=== PATIENT | female | born 1970 | race Caucasian/White ===

== ENCOUNTER 2021-04-07 08:28 | Outpatient (REF) | payer OTHER, SELFPAY ==
[2021-04-07 08:52] LABS: MANUAL DIFF FLAG NO
[2021-04-07 09:45] LABS: Basophils Percent Auto 0.6 % (0-2); Eosinophils Absolute Auto 0.2 X10*3/uL (0.0-0.4); Eosinophils Percent Auto 2.2 % (0-4); Hematocrit 38.3 % (37-47); Hemoglobin 12.4 g/dl (12.0-16.0); Imm Gran Abs Auto 0.02 X10*3/uL (0.00-0.03); Imm Gran Pct Auto 0.3 % (0.0-0.4); Lymphocytes Absolute Auto 2.3 X10*3/uL (1.2-4.9); Lymphocytes Percent Auto 33.2 % (20-40); Mean Corpuscular HGB Conc 32.4 g/dl (31.0-35.0); Mean Corpuscular Hemoglobin 28.2 pg (27.0-33.0); Monocytes Absolute Auto 0.5 X10*3/uL (0.1-1.2); Monocytes Percent Auto 7.2 % (2-11); Neutrophils Absolute Auto 3.8 X10*3/uL (2.0-8.3); Neutrophils Percent Auto 56.5 % (45-73); Platelet Count 294 X10*3/uL (160-400); White Blood Count 6.8 X10*3/uL (4.8-10.8)
[2021-04-07 10:22] LABS: Alanine Aminotransferase 13 U/L (0-31); Albumin Level 4.1 g/dL (3.5-5.0); Alkaline Phosphatase 44 U/L (39-117); Anion Gap 9 (12-20); Aspartate Amino Transferase 17 U/L (5-31); Bilirubin Total 0.3 mg/dL (0.0-1.0); Blood Urea Nitrogen 8 mg/dL (9-16); Calcium 9.1 mg/dL (8.4-10.2); Carbon Dioxide 28 mmol/L (22-29); Chloride 107 mmol/L (96-108); Cholesterol 209 mg/dL; Estimated Glomerular Filt Rate > 60; Glucose Random 90 mg/dL (60-115); HDL Cholesterol 52 mg/dL; LDL Cholesterol Calculated 141 mg/dl; Potassium 4.2 mmol/L (3.3-5.1); Sodium 140 mmol/L (135-145); Total Protein 6.7 g/dL (6.5-8.0); Triglycerides 83 mg/dL
[2021-04-07 10:26] LABS: Estimated Average Glucose 103 mg/dL; Hemoglobin A1c % 5.2 %
[2021-04-07 10:37] LABS: HBS Num1 > 1000.00 mIU/mL (0-7.99); HBsAGNum1 0.27 S/CO (0.00-0.99); HIV AB/AG Nonreactive (Nonreactive); HIV Num 1 0.05 S/CO (0.00-0.99); Hepatitis B Surface Antigen Negative (Negative); ~HepC Num1 4.85 S/CO (0.00-0.79); ~Hepatitis B Surface Antibody REACTIVE (Nonreactive); ~Hepatitis C Antibody Reactive (Nonreactive)
[2021-04-07 10:39] LABS: Erythrocyte Sedimentation Rate 12 MM/HR (0-20)
[2021-04-07 10:43] LABS: Free T4 (Free Thyroxine) 1.05 ng/dL (0.71-1.85); Thyroid Stimulating Hormone 1.21 uIU/mL (0.32-4.0); Vitamin D 25-OH Total 21.3 ng/mL (>30)
[2021-04-07 10:46] LABS: Syphilis Screen Nonreactive (Nonreactive)
[2021-04-07 10:56] LABS: Folate 15.7 ng/mL (> or = 4.0); Vitamin B12 926 pg/mL (200-900)
[2021-04-07 11:01] LABS: HBc Num1 0.06 S/CO (0.00-0.79); Hepatitis B Core Antibody Nonreactive (Nonreactive)
== END 2021-04-07 08:29 | disposition home or self-care (01) ==
LOC: HO.LAB 08:28
PROVIDERS: PCP Internal Medicine; Visit Provider Internal Medicine
DX: R73.01 Impaired fasting glucose (principal); E78.00 Pure hypercholesterolemia, unspecified; Z20.2 Contact with and (suspected) exposure to infections with a predominantly sexual mode of transmission
CPT/HCPCS: 36415; 80053; 80061; 82306; 82607; 82746; 83036; 84439; 84443; 85025; 85652; 86704; 86706; 86780; 86803; 87340; 87389

== ENCOUNTER → 2021-08-23 13:51 | Outpatient (BNVA) | payer OTHER, SELFPAY | PROVIDERS: PCP Internal Medicine; Referring Provider Internal Medicine; Visit Provider Surgery | DX: S01.311A Laceration without foreign body of right ear, initial encounter (principal); H61.111 Acquired deformity of pinna, right ear | CPT/HCPCS: 99202 ==

== ENCOUNTER 2021-10-03 06:18 | Day surgery (SDC) | payer OTHER, SELFPAY ==
[2021-09-27 13:32] VITALS: BMI 22.4
[2021-09-27 13:37] VITALS: BMI 22.4
--- NOTE | 2021-10-02 08:45 | P.CONAN_ITS ---
Documented by User: Jory Kinsey NP 10/02/21 08:47 HPI - Anesthesia Eval Consult details Narrative: 51yo F for Right Repair of Split Earlobe PMFSH Active Problems Active Problems: All Active Problems (Updated 09/27/21 @ 13:27 by Larisa Moreland RN) Varicose veins of both lower extremities (Acute) Fall (Acute) Ankle pain, right (Acute) Cervical muscle strain (Acute) Acne (Acute) Low back pain (Acute) Wrist pain, right (Acute) Laceration of earlobe (Acute) Annual physical exam (Acute) Colon cancer screening (Acute) Generalized anxiety disorder (Acute) Eczema (Acute) Sexually transmitted disease exposure (Acute) Constipation (Acute) Breast cancer screening by mammogram (Acute) Vitamin D deficiency (Acute) Acquired deformity of pinna, right ear (Acute) Hypercholesterolemia (Acute) Anxiety and depression (Acute) Impaired fasting glucose (Acute) Renal calculus (Acute) Tobacco abuse (Acute) Past Medical History Medical History (Updated 10/03/21 @ 06:26 by Swati Bhakta RN) Acquired deformity of pinna, right ear Anxiety and depression Back pain Hepatitis C virus infection cured after antiviral drug therapy Hypercholesterolemia Impaired fasting glucose Pap smear vag w ASC-US Peripheral vascular disease Renal calculus Tobacco abuse Vitamin D deficiency Family History Family History Father No problems noted. Mother No problems noted. Son No problems noted. Son No problems noted. Daughter No problems noted. Daughter No problems noted. Daughter No problems noted. Maternal Grandmother Breast cancer Surgical History Surgical History H/O tubal ligation History of hemorrhoidectomy Varicose veins of both lower extremities Social History Social History Housing: Apartment Alcohol intake: never Patient Tobacco Use Status: Current everyday Tobacco user Tobacco use type: Cigarette Cigarettes Per Day: 3 e-Cigarette/Vaping Use: Never Used Second Hand Smoke Exposure: No Advance Directives: No Advance Directives Information Provided: Yes Advance Directives on File: No Current occupational status: disabled Meds Allergies Allergy/AdvReac Type Severity Reaction Status Date / Time acetaminophen [Tylenol] AdvReac Mild Abdominal Verified 10/03/21 06:25 Pain Home Medications Medication Instructions Recorded Confirmed Last Taken Type clonidine HCl 0.1 mg tablet 0.1 mg PO BID 03/24/20 09/27/21 Unknown History oxycodone 5 mg tablet 5 mg PO Q6H PRN 03/24/20 09/27/21 10/03/21 04:00 History Exam Exam Date and Time: October 02, 2021 0845 Height,Weight and Vital Signs: Height 5 ft 5 in Weight 61.235 kg Pertinent Lab Results Pertinent Lab Results: Laboratory Tests 04/07/21 04/07/21 04/07/21 08:51 08:51 08:51 WBC 6.8 Hgb 12.4 Hct 38.3 Plt Count 294 Sodium 140 Potassium 4.2 Chloride 107 Carbon Dioxide 28 BUN 8 L Creatinine 0.78 Hemoglobin A1c % 5.2 Calcium 9.1 Total Bilirubin 0.3 AST 17 ALT 13 Alkaline Phosphatase 44 Total Protein 6.7 Albumin 4.1 Assessment and Plan Assessment Anesthesia Assessment: Chart Reviewed Documented by User: Guido Flor MD 10/03/21 07:08 [facility] Past Medical History Medical History (Updated 10/03/21 @ 06:26 by Swati Bhakta, RN) Acquired deformity of pinna, right ear Anxiety and depression Back pain Hepatitis C virus infection cured after antiviral drug therapy Hypercholesterolemia Impaired fasting glucose Pap smear vag w ASC-US Peripheral vascular disease Renal calculus Tobacco abuse Vitamin D deficiency Family History Family History Father No problems noted. Mother No problems noted. Son No problems noted. Son No problems noted. Daughter No problems noted. Daughter No problems noted. Daughter No problems noted. Maternal Grandmother Breast cancer Family history of problems with anesthesia: No Surgical History Surgical History H/O tubal ligation History of hemorrhoidectomy Varicose veins of both lower extremities History of Problems with Anesthesia: No Social History Social History Housing: Apartment Alcohol intake: never Patient Tobacco Use Status: Current everyday Tobacco user Tobacco use type: Cigarette Cigarettes Per Day: 3 e-Cigarette/Vaping Use: Never Used Second Hand Smoke Exposure: No Advance Directives: No Advance Directives Information Provided: Yes Advance Directives on File: No Current occupational status: disabled Meds Allergies Allergy/AdvReac Type Severity Reaction Status Date / Time acetaminophen [Tylenol] AdvReac Mild Abdominal Verified 10/03/21 06:25 Pain Home Medications Medication Instructions Recorded Confirmed Last Taken Type clonidine HCl 0.1 mg tablet 0.1 mg PO BID 03/24/20 09/27/21 Unknown History oxycodone 5 mg tablet 5 mg PO Q6H PRN 03/24/20 09/27/21 10/03/21 04:00 History Exam Airway Mallampati Class: II TM Dist: >3cm Neck ROM: Full Loose/Missing/Broken Teeth: No Heart: rrr+[id number] Lungs: cta b/l Assessment and Plan Assessment Anesthesia Assessment: Anesthesia Plan Discussed Final Anesthetic Review Family History of Problems with Anesthesia: No History of Problems with Anesthesia: No NPO: Yes ASA Class: II Final Preanesthetic Review: No Changes in Pt Med Stat, Meds/Allgs Chart Reviewed, Consent Obtained/Reviewed and Anes Risks/Benef Reviewed Patient Risk: Low Procedure Risk: Low Assessment/Block/Sedation in SS: Assess/Block/Sedation-SS Anesthetic Plan Anesthetic Plan: MAC: and Agree w/ Assess. and Plan Disposition: Standard PACU
[2021-10-03 06:30] VITALS: BP 122/65; PULSE 69; RESP 16; TEMP 36.4; O2SAT 99
[2021-10-03] MEDS: Lactated Ringers 1,000 ML 100 ML IVCONT (06:47)
--- NOTE | 2021-10-03 07:25 | P.HPSUR_ITS ---
Pre-Procedural Eval Section A Date of Service: 10/03/21 Section B Chief Complaint: Acquired deformity of pinna, right ear Details of Present Illness: has split earlobe on right Relevant Social History: None Present Medications: see Short Stay Collaborative assessment Medical History: Significant History (chronic back pain, anxiety, varicose veins) History of Previous Operations: No relevant previous surgery Allergies: Allergies Allergy/AdvReac Type Severity Reaction Status Date / Time acetaminophen [Tylenol] AdvReac Mild Abdominal Verified 10/03/21 06:25 Pain Review of Systems Sugical H&P ROS: Negative: Constitution, Cardiovascular, Respiratory, N eurological, Psychiatric, Hem-Onc, Allergic/Immunologic, Gastrointestinal, Genitourinary, Musculoskeletal, Integumentary, Endocrine and Eyes/Ears/Nose/Throat Exam Surgical H&P Exam: Normal: HEENT, Normal: Heart, Normal: Lungs, Normal: Extremities, Normal: Abdomen, Normal: Skin and Normal: Neurological Exam Comment: split earlobe right Plan Diagnosis/Plan: Unchanged I have reviewed the history and physical and performed a pertinent physical examination on my patient. No changes have occurred unless specified.
--- NOTE | 2021-10-03 08:14 | P.OP_ITS ---
Operative Note Operative Note Date of Service: 10/03/21 Narrative: Preop diagnosis: Split earlobe, right Postop diagnosis: The same Procedure: Repair of split earlobe, right under monitored anesthesia care Surgeon: Michael Quintanilla MD Patient is a 51-year-old female with a 1 cm split earlobe on the right side. She wanted to proceed with repair. The technique the procedure. She was aware of the risks, benefits, and alternatives. She had wanted this done under monitored anesthesia care in view of her anxiety . He was brought to the operating room she was placed under monitored anesthesia care. Her head was turned to the left to expose the right earlobe. This area was prepped and draped. A surgical time-out was done. The patient received cefazolin 2 g IV preoperatively. Lidocaine 1 % was used for local anesthesia. I excise the split in the earlobe in AV- shaped fashion. I then reappose the skin starting from anteriorly all the way to the posterior side of the excised part of this earlobe using nylon 5 0 simple interrupted sutures. The area remained viable and nonischemic throughout. hemostasis was confirmed, proceeded to then infiltrated the area surrounding this Marcaine 0.5% for postop analgesia. I applied thick dressings and secured this with tape. The procedure was then completed. The patient tolerated the procedure well. There were no complications noted. Initial and final counts of sponges and instruments were correct. Estimated blo od loss about 2 cc The patient was then transferred to the recovery room with stable vital signs.
[2021-10-03 08:19] VITALS: BP 96/63; PULSE 75; RESP 18; TEMP 36.1; O2SAT 100
[2021-10-03 08:35] VITALS: BP 111/69; PULSE 64; RESP 18; TEMP 36.2; O2SAT 100
== END 2021-10-03 11:27 | disposition home or self-care (01) ==
PROVIDERS: PCP Internal Medicine; Visit Provider Surgery
PROC: (CPT 12011; principal; 2021-10-03 07:30)
DX: H61.111 Acquired deformity of pinna, right ear (principal); S01.311A Laceration without foreign body of right ear, initial encounter; W26.8XXA Contact with other sharp object(s), not elsewhere classified, initial encounter; Y93.89 Activity, other specified; Y92.89 Other specified places as the place of occurrence of the external cause; Y99.8 Other external cause status; F41.1 Generalized anxiety disorder; I73.9 Peripheral vascular disease, unspecified; R73.01 Impaired fasting glucose; E78.00 Pure hypercholesterolemia, unspecified; Z79.899 Other long term (current) drug therapy; Z88.8 Allergy status to other drugs, medicaments and biological substances; Z86.19 Personal history of other infectious and parasitic diseases; F17.210 Nicotine dependence, cigarettes, uncomplicated
CPT/HCPCS: 12011; J0690; J1885; J2250; J2405; J3010

== ENCOUNTER → 2021-10-23 15:28 | Outpatient (BNVA) | payer OTHER, SELFPAY | PROVIDERS: PCP Internal Medicine; Referring Provider Internal Medicine; Visit Provider Surgery | DX: S01.312D Laceration without foreign body of left ear, subsequent encounter (principal) | CPT/HCPCS: 99212 ==

== ENCOUNTER 2021-11-10 15:06 | Outpatient (REF) | payer OTHER, SELFPAY ==
--- NOTE | ~2021-11-10 | MM_ITS ---
EXAMINATION: MM SCREENING DIGITAL BREAST TOMOSYNTHESIS, BILATERAL CLINICAL INFORMATION: Screening. Asymptomatic. The lifetime risk of breast cancer based on the Tyrer-Cuzick Model is 11%. COMPARISON: Mammography: 11/04/2015, 04/28/2014 TECHNIQUE: Digital breast tomosynthesis is performed in both the craniocaudal and mediolateral oblique views along with computer-aided detection (CAD). Synthesized 2D images are generated from the tomosynthesis. Additional left CC view is provided. FINDINGS: The breasts are heterogeneously dense, which may obscure small masses (ACR BI-RADS breast composition Category c). Inhomogeneous fibronodular parenchymal pattern is similar to prior studies. There is no significant mass or interval architectural abnormality or developing density. Scattered punctate round calcifications are present. No suspicious calcifications. The axilla and skin contours are unremarkable. No significant changes. MM/MM tomosynthesis screening BI IMPRESSION: No significant changes from prior studies. ASSESSMENT: BI-RADS 2: Benign RECOMMENDATION: Routine annual mammography screening. This patient's information was entered into a reminder system with a target due date for their next mammogram.
== END 2021-11-10 15:07 | disposition home or self-care (01) ==
LOC: HO.MAMMO 15:06
PROVIDERS: PCP Internal Medicine; Visit Provider Internal Medicine
DX: Z12.31 Encounter for screening mammogram for malignant neoplasm of breast (principal)
CPT/HCPCS: 77063; 77067

== ENCOUNTER 2022-06-11 11:55 | Outpatient (REF) | payer OTHER, SELFPAY ==
[2022-06-11 12:15] LABS: MANUAL DIFF FLAG NO
[2022-06-11 12:28] LABS: Basophils Percent Auto 0.3 % (0-2); Eosinophils Absolute Auto 0.1 X10*3/uL (0.0-0.4); Eosinophils Percent Auto 0.8 % (0-4); Hematocrit 39.3 % (37.0-47.0); Hemoglobin 12.8 g/dl (12.0-16.0); Imm Gran Abs Auto 0.04 X10*3/uL (0.00-0.03); Imm Gran Pct Auto 0.3 % (0.0-0.4); Lymphocytes Absolute Auto 2.1 X10*3/uL (1.2-4.9); Lymphocytes Percent Auto 17.4 % (20-40); Mean Corpuscular HGB Conc 32.6 g/dl (31.0-35.0); Mean Corpuscular Hemoglobin 28.4 pg (27.0-33.0); Mean Corpuscular Volume 87.1 fL (80.0-98.0); Mean Platelet Volume 8.9 fL (9.4-12.3); Monocytes Absolute Auto 0.7 X10*3/uL (0.1-1.2); Monocytes Percent Auto 5.6 % (2-11); Neutrophils Absolute Auto 9.1 x10*3/uL (2.0-8.3); Neutrophils Percent Auto 75.6 % (45-73); Platelet Count 276 X10*3/uL (160-400); Red Blood Count 4.51 X10*6/uL (4.20-5.50); Red Cell Distribution Width 13.7 % (11.0-16.0)
[2022-06-11 13:05] LABS: Estimated Average Glucose 100 mg/dL; Hemoglobin A1c % 5.1 %
[2022-06-11 13:13] LABS: Alanine Aminotransferase 10 U/L (0-31); Albumin Level 4.1 g/dL (3.5-5.0); Alkaline Phosphatase 51 U/L (39-117); Anion Gap 10 (12-20); Aspartate Amino Transferase 15 U/L (5-31); Bilirubin Total 0.5 mg/dL (0.0-1.0); Blood Urea Nitrogen 6 mg/dL (9-16); Calcium 9.3 mg/dL (8.4-10.2); Carbon Dioxide 27 mmol/L (22-29); Chloride 106 mmol/L (96-108); Cholesterol 204 mg/dL; Estimated Glomerular Filt Rate > 60; Free T4 (Free Thyroxine) 0.96 ng/dL (0.71-1.85); Glucose Random 117 mg/dL (60-115); HDL Cholesterol 56 mg/dL; LDL Cholesterol Calculated 137 mg/dl; Potassium 4.3 mmol/L (3.3-5.1); Sodium 139 mmol/L (135-145); Thyroid Stimulating Hormone 0.37 uIU/mL (0.32-4.0); Total Protein 6.5 g/dL (6.5-8.0); Triglycerides 56 mg/dL; Vitamin D 25-OH Total 14.3 ng/mL (>30)
[2022-06-11 14:11] LABS: Folate 16.1 ng/mL (> or = 4.0); Vitamin B12 867 pg/mL (200-900)
== END 2022-06-11 11:56 | disposition home or self-care (01) ==
LOC: HO.LAB 11:55
PROVIDERS: PCP Internal Medicine; Visit Provider Internal Medicine
DX: E78.00 Pure hypercholesterolemia, unspecified (principal); R73.01 Impaired fasting glucose; M54.50 Low back pain, unspecified
CPT/HCPCS: 36415; 72100; 80053; 80061; 82306; 82607; 82746; 83036; 84439; 84443; 85025

== ENCOUNTER 2022-07-20 12:46 | Outpatient (RCR) | payer OTHER, SELFPAY ==
--- NOTE | 2022-07-20 14:48 | MHC.PT.EP ---
[facility] [place] Office [place] Office [place] Office [address] Rex Durant [address] [phone] F: [phone] F: [phone] F: [phone] F: [phone] Physical Therapy Plan of Care Date of Evaluation: Date of Surgery: Diagnosis: low back pain Assessment: Patient is a 52 y.o. female who is referred to PT by Dr. Bhavya Mariscal MD with Dx of low back pain. 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 Patient impairments include pain, radicular sxs, weakness in hips and core, limited ROM, antalgic gait. Patient current functional limitations are prolonged walking, prolonged standing, prolonged sitting, put on shoes/socks, difficulty sleeping (lies on side). Patient will benefit from skilled PT to address aforementioned impairments and functional limitations to meet established goals. Frequency and Duration: The patient will be seen 2x/week for 4 weeks Short Term Goals: 2 weeks Patient demonstrates consistency and independence with HEP to self manage symptoms. Patient presents with increased L hip glute med strength 4/5 to be able to ambulate without antalgia. Alf Goals: Patient presents with increased L hip flexion 4+/5 to be able to stand to cook for more than 10 mins. Patient presents with increased low back AROM flexion 70 degrees to be able to put on shoes/socks. Treatment Plan: Modalities to reduce pain, spasms and effusion. Manual therapy to restore motion and function. Therapeutic exercise to improve strength and flexibility. Neuromuscular re-education for posture and balance. Therapeutic activities to return to functional activities of daily living. Electronically signed by: Anju Allen, PT, DPT Please sign and return to therapist. Thank you for your referral.
--- NOTE | 2022-08-20 12:52 | MHC.PT.DC ---
[facility] [place] Office [place] Office [place] Office [address] Rex Durant [address] [phone] F: [phone] F: [phone] F: [phone] F: [phone] Physical Therapy Discharge Report Diagnosis: low back pain Date of Surgery: Date of Evaluation: 07/20/22 Date of Discharge: Treatments to Date: 1 Cancellations to Date: 1 No Shows to Date: 3 Discharge Status: Visit Non-compliance Discharge Summary: Patient did not show to any visits after initial evaluation. Therefore she is discharged from PT at this time. Electronically signed by: Anju Allen, PT, DPT Please sign and return to therapist. Thank you for your referral.
== END 2022-08-20 12:52 | disposition home or self-care (01) ==
LOC: HO.PT 12:46
PROVIDERS: PCP Internal Medicine; Visit Provider Internal Medicine
DX: M54.50 Low back pain, unspecified (principal)
CPT/HCPCS: 97110; 97140; 97161

== ENCOUNTER 2023-02-05 14:27 | Outpatient (AMB) | payer OTHER, SELFPAY ==
[2023-02-05 14:39] VITALS: BP 112/70; PULSE 72; O2SAT 96
--- NOTE | 2023-02-05 14:39 | A.OFFPC_ITS ---
Vital Signs 02/05/23 14:39 Height 5 ft 5 in Weight 120 lb BMI 20.0 BP 112/70 Blood Pressure Location Lt brachial Position Sitting Pulse 72 Pulse Source Pulse Oximeter Pulse Oximetry (%) 96 Oxygen Delivery Method Room Air Intake Visit Reasons: discuss referral/order for legs Allergies acetaminophen [Tylenol] Adverse Reaction (Mild, Verified 02/05/23 14:39) Abdominal Pain Medication List - Last Reconciled 02/05/23 by Bhavya Mariscal MD hydrocortisone 2.5% (Proctosol HC) 1 appl UT BID-QID PRN oxycodone 10 mg PO Q6H PRN sennosides-docusate sodium 8.6-50 mg (Senna-S) 2 tab-caps (2 x 8.6-50 mg) PO BEDTIME 30 days Tobacco use date assessed: 02/05/23 Dental Screening Dental Screen Date: 02/05/23 Did you have a dental visit in the last 12 months?: Yes Did you have a dental problem in the last 6 months where you did not have access to dental care?: No Was dental information given to patient?: Patient has dentist HPI discuss referral/order for legs HPI Details 52-year-old female smoker with a history of recurrent kidney stones, generalized anxiety disorder hypercholesterolemia impaired glucose tolerance last seen in April 2022. Patient has complained about leg pain for the ken gest time and blames varicose veins as the cause.. Review of the notes patient has followed up with vascular surgeon has had endovenous radiofrequency ablation of the saphenous vein before and chronic lower leg pain of unclear etiology requiring narcotics. Patient has been on long on narcotics under the vascular surgeon for the leg pain and has reached out to me regarding pain that does not get explained by the circulation problem as this has been mild. Advised pain management versus diagnosis fibromyalgia.PAtient has seen Dr. Gant and states that she is not her regular doctor (Dr. Zhang.) who has made plans already which is acupuncture and continuing with the pain medication. . PAtient does not want to see pain management and wants to go ahead with acupuncture . [facility] Medical History (Updated 02/05/23 @ 15:03 by Bhavya Mariscal MD) Acquired deformity of pinna, right ear Anxiety and depression Back pain Hepatitis C virus infection cured after antiviral drug therapy Hypercholesterolemia Impaired fasting glucose Pap smear vag w ASC-US Peripheral vascular disease Renal calculus Tobacco abuse Vitamin D deficiency Surgical History H/O tubal ligation History of hemorrhoidectomy Varicose veins of both lower extremities Family History (Updated 02/05/23 @ 14:40 by Dahlia Donnelly [facility]) Father No problems noted. Mother No problems noted. Son No problems noted. Son No problems noted. Daughter No problems noted. Daughter No problems noted. Daughter No problems noted. Maternal Grandmother Breast cancer Social History Housing: Apartment Alcohol intake: never Patient Tobacco Use Status: Current everyday Tobacco user Tobacco use type: Cigarette Cigarettes Per Day: 3 e-Cigarette/Vaping Use: Never Used Second Hand Smoke Exposure: No Current occupational status: disabled Cognitive needs: No Hearing needs: No Vision needs: No Questionnaire PHQ-9 Over the last 2 weeks, how often have you been bothered by any of the following problems? 1. Little interest or pleasure in doing things: several days 2. Feeling down, depressed, or hopeless: several days 3. Trouble falling or staying asleep, or sleeping too much: not at all 4. Feeling tired or having little energy: not at all 5. Poor appetite or overeating: not at all 6. Feeling bad about yourself - or that you are a failure or have let yourself or your family down: not at all 7. Trouble concentrating on things, such as reading the newspaper or watching television: not at all 8. Moving or speaking so slowly that other people could have noticed. Or the opposite - being so fidgety or restless that you have been moving around a lot more than usual: not at all 9. Thoughts that you would be better off or of hurting yourself in some way: not at all Total score: 2 Depression Screening Interpretation: Positive Source: Developed by Drs. Isiah Stanley, Kari Sprague, Troy Kendrick and colleagues, with an educational maxime from [employer] [place]. Thrive Questionnaire Date Thrive assessed: 02/05/23 I am a: Patient What is your living situation today?: I have a steady place to live Within the past 12 months, did the food you bought not last and you didn't have the money to get more?: Never true Within the past 12 months, did you worry whether your food would run out before you got money to buy more?: Never true Do you have trouble paying for medicines?: No Do you have trouble getting transportation to medical appointments?: No Do you have trouble paying your heating and electricity bill?: No Do you have trouble taking care of your child, family member or friend?: No Do you have trouble with day-to-day activities such as bathing, preparing meals, shopping, managing finances, etc.?: No Are you currently unemployed and looking for a job?: No Are you interested in more education?: No Currently or been in a relationship where the following occur: no concerns reported AUDIT C Alcohol Use Questionnaire (AUDIT-C) 1. How often do you have a drink containing alcohol?: Never 2. How many drinks containing alcohol do you have on a typical day when you are drinking?: 1 or 2 3. How often do you have six or more drinks on one occasion?: Never Total Score: 0 THERESA-7 AMB Questionnaire THERESA-7 Date THERESA - 7 assessed: 02/05/23 Feeling nervous, anxious, or on edge: 0 = Not at all Not being able to stop or control worryin = Not at all Worrying too much about different things: 0 = Not at all Trouble relaxin = Not at all Being so restless that it is hard to sit still: 0 = Not at all Becoming easily annoyed or irritable: 0 = Not at all Feeling afraid as if something awful might happen: 0 = Not at all Total THERESA-7 score (0-4 normal; 5-9 mild; 10-14 moderate; 15-21 severe): 0 Source: Developed by Drs. Isiah Stanley, Kari Sprague, Troy Kendrick and colleagues, with an educational maxime from [employer] [place]. Physical exam (Primary Care) Vital Signs: Last Vital Signs Pulse 72 02/05/23 14:39 BP 112/70 02/05/23 14:39 Pulse Ox 96 02/05/23 14:39 Oxygen Delivery Method Room Air 02/05/23 14:39 BMI result Body Mass Index 20.0 Tobacco/Smoking Status: Tobacco use Status Tobacco use date assessed 02/05/23 02/05/23 14:45 Patient Tobacco Use Status Current everyday Tobacco 02/05/23 14:45 Tobacco use type Cigarette 02/05/23 14:45 e-Cigarette/Vaping Use Never Used 02/05/23 14:45 PHQ-9: PHQ-9 Score PHQ-9: Total score 2 02/05/23 14:45 Depression Screening Interpretation: Positive Thrive Assessment: Date of Thrive Assessment Date Thrive assessed 02/05/23 02/05/23 14:45 Currently or been in a relationship where the following occur: no concerns reported Const General: alert; No acute distress Eyes Conjunctivae: conjunctivae normal Resp Auscultation: clear to auscultation bilaterally Cardio Rate: regular rate Rhythm: regular rhythm GI Inspection: Yes normal to inspection Extrem General: Yes normal to inspection and No edema Assessment and Plan Assessment & Plan (1) Chronic leg pain: Code(s): M79.606 - Pain in leg, unspecified; G89.29 - Other chronic pain Plan: Vascular surgeon has reached out to me regarding the leg pain out of proportion from the medical problem. Consideration on pain management versus a diagnosis of fibromyalgia but patient would rather have a trial of acupuncture. Referral done (2) Impaired fasting glucose: Code(s): R73.01 - Impaired fasting glucose Plan: Decrease the amount of carbohydrate intake, pasta, bread, rice and potatoes are all sugar and that is aside from all the sweet stuff, remember that fruits are good but they are Sweet also. (3) Tobacco abuse: Comment: States stopped March 2021 Code(s): Z72.0 - Tobacco use Plan: Patient has been strongly advised to stop smoking! (4) Hypercholesterolemia: Code(s): E78.00 - Pure hypercholesterolemia, unspecified Plan: Avoid fried foods, chicken skin, eggs, butter margarine, pastries and meat. Be it pork or beef they have a lot of cholesterol LDL goal of less than 130 and triglyceride of less than 150 (5) Peripheral vascular disease: Comment: had vein ligation 2015 Code(s): I73.9 - Peripheral vascular disease, unspecified Plan: When sitting down elevate the legs, exercise, and support stockings Orders: Referrals Acupuncture Referral G89.29 - Other chronic pain, I73.9 - Peripheral vascular disease, unspecified, M79.606 - Pain in leg, unspecified Medications: Refilled sennosides-docusate sodium 8.6-50 mg (Senna-S) 2 tab-caps (2 x 8.6-50 mg) PO BEDTIME 30 days 60 tabs 1RF K59.00 - Constipation, unspecified hydrocortisone 2.5% (Proctosol HC) 1 appl UT BID-QID PRN 30 grams 0RF hemorrhoids K64.9 - Unspecified hemorrhoids Coding Level of Care Code Est Pt Level 4 (88097) Diagnoses Chronic leg pain M79.606; G89.29 Impaired fasting glucose R73.01 Tobacco abuse Z72.0 Hypercholesterolemia E78.00 Peripheral vascular disease I73.9
== END 2023-02-05 15:14 | disposition home or self-care (01) ==
PROVIDERS: PCP Internal Medicine; Visit Provider Internal Medicine
DX: G89.29 Other chronic pain (principal); M79.606 Pain in leg, unspecified; I73.9 Peripheral vascular disease, unspecified; R73.01 Impaired fasting glucose; Z72.0 Tobacco use; E78.00 Pure hypercholesterolemia, unspecified
CPT/HCPCS: 99214

== ENCOUNTER 2023-04-09 13:52 | Outpatient (REF) | payer OTHER, SELFPAY | END 2023-04-09 13:53 | disposition home or self-care (01) | LOC: HO.MAMMO 13:52 | PROVIDERS: PCP Internal Medicine; Visit Provider Internal Medicine | DX: Z12.31 Encounter for screening mammogram for malignant neoplasm of breast (principal) | CPT/HCPCS: 77063; 77067 ==

== ENCOUNTER → 2023-04-09 14:00 | Outpatient (BNV) | payer OTHER, SELFPAY | PROVIDERS: PCP Internal Medicine; Visit Provider Radiology Diagnostic Radiology | DX: Z12.31 Encounter for screening mammogram for malignant neoplasm of breast (principal) | CPT/HCPCS: 77063; 77067 ==

== ENCOUNTER 2023-05-08 13:00 | Outpatient (AMB) | payer OTHER, SELFPAY ==
[2023-05-08 13:03] VITALS: BP 102/52; PULSE 67; O2SAT 98; BMI 21.0
--- NOTE | 2023-05-08 13:03 | MHC.PC.OV ---
Vital Signs 05/08/23 13:03 Height 5 ft 5 in Weight 126 lb BMI 21.0 BP 102/52 L Blood Pressure Location Lt brachial Position Sitting Pulse 67 Pulse Source Pulse Oximeter Pulse Oximetry (%) 98 Oxygen Delivery Method Room Air Intake Visit Reasons: Annual Exam Allergies ibuprofen [From Motrin] Adverse Reaction (Intermediate, Verified 05/08/23 13:21) Stomach Upset acetaminophen [Tylenol] Adverse Reaction (Mild, Verified 05/08/23 13:03) Abdominal Pain Medication List - Last Reconciled 05/08/23 by Bhavya Mariscal MD oxycodone 10 mg PO DAILY PRN sennosides-docusate sodium 8.6-50 mg (Senna-S) 2 tab-caps (2 x 8.6-50 mg) PO BEDTIME 30 days Tobacco use date assessed: 02/05/23 Dental Screening Dental Screen Date: 05/08/23 Did you have a dental visit in the last 12 months?: Yes Did you have a dental problem in the last 6 months where you did not have access to dental care?: No Was dental information given to patient?: Patient has dentist HPI Annual Exam HPI Details 53-year-old female smoker with a history of impaired glucose tolerance, hypercholesterolemia peripheral vascular disease and chronic leg pain last seen in January 2023. Patient is here for physical exam. Mammogram is up-to-date December 2021 Cologuard negative patient had chronic leg pain and vascular surgeon has sent out a message for pain management but patient has decided acupuncture. 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 not able to do acupuncture and looking for due to [facility] Medical History (Updated 05/08/23 @ 13:41 by Bhavya Mariscal MD) Back pain Acquired deformity of pinna, right ear Hypercholesterolemia Peripheral vascular disease Anxiety and depression Pap smear vag w ASC-US Vitamin D deficiency Hepatitis C virus infection cured after antiviral drug therapy Impaired fasting glucose Renal calculus Tobacco abuse Surgical History Varicose veins of both lower extremities H/O tubal ligation History of hemorrhoidectomy Family History (Updated 02/05/23 @ 14:40 by Dahlia Donnelly CMA) Father No problems noted. Mother No problems noted. Son No problems noted. Son No problems noted. Daughter No problems noted. Daughter No problems noted. Daughter No problems noted. Maternal Grandmother Breast cancer Social History (Updated 05/08/23 @ 13:24 by Bhavya Mariscal MD) Housing: Apartment Alcohol intake: never Patient Tobacco Use Status: Current everyday Tobacco user Tobacco use type: Cigarette Cigarettes Per Day: 3 Years Smoked: stopped 02/2023 e-Cigarette/Vaping Use: Never Used Second Hand Smoke Exposure: No Current occupational status: disabled Cognitive needs: No Hearing needs: No Vision needs: No Questionnaire PHQ-9 Over the last 2 weeks, how often have you been bothered by any of the following problems? 1. Little interest or pleasure in doing things: several days 2. Feeling down, depressed, or hopeless: several days 3. Trouble falling or staying asleep, or sleeping too much: not at all 4. Feeling tired or having little energy: not at all 5. Poor appetite or overeating: not at all 6. Feeling bad about yourself - or that you are a failure or have let yourself or your family down: not at all 7. Trouble concentrating on things, such as reading the newspaper or watching television: not at all 8. Moving or speaking so slowly that other people could have noticed. Or the opposite - being so fidgety or restless that you have been moving around a lot more than usual: not at all 9. Thoughts that you would be better off or of hurting yourself in some way: not at all Total score: 2 Depression Screening Interpretation: Positive Depression Screening Done: Yes Source: Developed by Drs. Isiah Stanley, Kari Sprague, Troy Kendrick and colleagues, with an educational maxime from [employer] Thrive Questionnaire Date Thrive assessed: 02/05/23 AUDIT C Alcohol Use Questionnaire (AUDIT-C) 1. How often do you have a drink containing alcohol?: Never 2. How many drinks containing alcohol do you have on a typical day when you are drinking?: 1 or 2 3. How often do you have six or more drinks on one occasion?: Never Total Score: 0 THERESA-7 AMB Questionnaire THERESA-7 Date THERESA - 7 assessed: 08/15/23 Source: Developed by Drs. Isiah Stanley, Kari Sprague, Troy Kendrick and colleagues, with an educational maxime from [employer]. Review of Systems Const Denies poor appetite and Denies weakness Eyes Denies no additional complaints ENT Reports Normal hearing present, Denies dizziness, Denies nasal congestion, Denies tinnitus and Denies sore throat Card Denies chest pain, Denies syncope, Denies rapid heart rate and Denies dyspnea Resp Denies cough and Denies dyspnea GI Denies change in stool character, Reports constipation, Denies diarrhea, Denies nausea and Denies vomiting Denies urinary frequency, Denies difficulty voiding and Denies dysuria Neuro Reports Normal hearing present, Denies confusion, Denies dizziness, Denies syncope and Denies weakness Psych Denies confusion Physical exam (Primary Care) Vital Signs: Last Vital Signs Pulse 67 05/08/23 13:03 BP 102/52 L 05/08/23 13:03 Pulse Ox 98 05/08/23 13:03 Oxygen Delivery Method Room Air 05/08/23 13:03 BMI result Body Mass Index 21.0 Tobacco/Smoking Status: Tobacco use Status Tobacco use date assessed 02/05/23 05/08/23 13:07 Patient Tobacco Use Status Current everyday Tobacco 05/08/23 13:07 Tobacco use type Cigarette 05/08/23 13:07 e-Cigarette/Vaping Use Never Used 05/08/23 13:07 PHQ-9: PHQ-9 Score PHQ-9: Total score 2 05/08/23 13:07 Depression Screening Interpretation: Positive Thrive Assessment: Date of Thrive Assessment Date Thrive assessed 02/05/23 05/08/23 13:07 Const General: No confusion Orientation/consciousness: No confusion HENMT Head: Yes normocephalic Ears: external ears normal and TM's normal bilaterally Face and sinus: Yes normal facial exam Mouth: moist mucous membranes Throat: Yes tonsils normal Eyes Conjunctivae: conjunctivae normal Pupils: Equal, round and reactive pupils present and Pupil accommodation reflex normal Direct Ophthalmoscopy: normal light reflex Neck Neck: No lymphadenopathy Thyroid: Thyroid normal Chest Chest palpation & inspection: normal inspection of the chest Resp Effort & Inspection: normal respiratory effort and no audible wheezes Auscultation: clear to auscultation bilaterally, no crackles, no wheezes and lung sounds not diminished Cardio Rate: regular rate Rhythm: regular rhythm Peripheral pulses: radial pulses present and dorsalis pedis present GI Palpation (GI): no masses Auscultation: normal bowel sounds and normoactive bowel sounds Rectal Exam - Female: deferred Skin General skin exam: no rashes or lesions noted Rashes: no rashes Neuro General: No confusion Cranial nerves: Yes Equal, round and reactive pupils present and Yes Normal hearing present Cognition (Neuro): normal cognition Gait exam (Neuro): Normal gait present Motor exam (neuro): 5/5 motor strength present throughout Deep tendon reflexes (DTR's): Right brachioradialis reflex intensity grade: 2+, Left brachioradialis reflex intensity grade: 2+, Right patellar reflex intensity grade: 2+ and Left patellar reflex intensity grade: 2+ Extrem General: No edema Assessment and Plan Assessment & Plan (1) Annual physical exam: Code(s): Z00.00 - Encounter for general adult medical examination without abnormal findings (2) Tobacco abuse: Comment: States stopped March 2021 Code(s): Z72.0 - Tobacco use Plan: strongly advised to stop smoking (3) Impaired fasting glucose: Code(s): R73.01 - Impaired fasting glucose Plan: Decrease the amount of carbohydrate intake, pasta, bread, rice and potatoes are all sugar and that is aside from all the sweet stuff, remember that fruits are good but they are Sweet also. (4) Hypercholesterolemia: Code(s): E78.00 - Pure hypercholesterolemia, unspecified Plan: Avoid fried foods, chicken skin, eggs, butter margarine, pastries and meat. Be it pork or beef they have a lot of cholesterol LDL goal of less than 130 and triglyceride of less than 150 (5) Generalized anxiety disorder: Comment: Michelle Engle Therapist Code(s): F41.1 - Generalized anxiety disorder Plan: Continue with counseling and therapy (6) Peripheral vascular disease: Comment: had vein ligation 2016 Code(s): I73.9 - Peripheral vascular disease, unspecified Plan: Patient continues to follow-up with vascular surgeon and has been placed on narcotic pain medication. But has been advised tapering the dose (7) Dense breast: Code(s): R92.2 - Inconclusive mammogram; R92.30 - Dense breasts, unspecified (8) Amenorrhea: Code(s): N91.2 - Amenorrhea, unspecified (9) Low back pain: Code(s): M54.50 - Low back pain, unspecified (10) Low back pain: Code(s): M54.50 - Low back pain, unspecified Orders: Orders Comprehensive Met. Panel Today E78.00 - Pure hypercholesterolemia, unspecified Free T4 (Free Thyroxine) Today E78.00 - Pure hypercholesterolemia, unspecified Vitamin D 25-OH Total Today E78.00 - Pure hypercholesterolemia, unspecified US breast LT complete Today R92.2 - Inconclusive mammogram, R92.30 - Dense breasts, unspecified US breast RT complete Today R92.2 - Inconclusive mammogram, R92.30 - Dense breasts, unspecified Estrogen Today N91.2 - Amenorrhea, unspecified Follicle Stimulating Hormone Today N91.2 - Amenorrhea, unspecified Lutenizing Hormone Today N91.2 - Amenorrhea, unspecified Prolactin Today N91.2 - Amenorrhea, unspecified XR sacroiliac joint 1-2V Today M54.50 - Low back pain, unspecified Complete Blood Count Auto Diff Today E78.00 - Pure hypercholesterolemia, unspecified Thyroid Stimulating Hormone Today E78.00 - Pure hypercholesterolemia, unspecified Vitamin B12 and Folate Today E78.00 - Pure hypercholesterolemia, unspecified Lipid Panel Today E78.00 - Pure hypercholesterolemia, unspecified Hemoglobin A1c Today E78.00 - Pure hypercholesterolemia, unspecified XR lumbar spine 2-3V Today M54.50 - Low back pain, unspecified PT Evaluation and Treatment Today M54.50 - Low back pain, unspecified Coding Level of Care Code Est Pt Prev Care 40-64y(91165) Diagnoses Annual physical exam Z00.00 Tobacco abuse Z72.0 Impaired fasting glucose R73.01 Hypercholesterolemia E78.00 Generalized anxiety disorder F41.1 Peripheral vascular disease I73.9 Dense breast R92.2; R92.30 Amenorrhea N91.2 Low back pain M54.50
== END 2023-05-08 13:46 | disposition home or self-care (01) ==
PROVIDERS: Visit Provider Internal Medicine
DX: Z00.00 Encounter for general adult medical examination without abnormal findings (principal); Z72.0 Tobacco use; I73.9 Peripheral vascular disease, unspecified; R73.01 Impaired fasting glucose; E78.00 Pure hypercholesterolemia, unspecified; F41.1 Generalized anxiety disorder; R92.2 Inconclusive mammogram; R92.30 Dense breasts, unspecified; N91.2 Amenorrhea, unspecified; M54.50 Low back pain, unspecified; Z87.891 Personal history of nicotine dependence
CPT/HCPCS: 99396

== ENCOUNTER 2023-11-21 13:31 | Outpatient (AMB) | payer OTHER, SELFPAY ==
[2023-11-21 13:33] VITALS: BP 80/58; PULSE 72; O2SAT 96; BMI 20.1
--- NOTE | 2023-11-21 13:33 | MHC.PC.OV ---
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 Allergies ibuprofen [From Motrin] Adverse Reaction (Intermediate, Verified 11/21/23 13:33) Stomach Upset acetaminophen [Tylenol] Adverse Reaction (Mild, Verified 11/21/23 13:33) Abdominal Pain Medication List - Last Reconciled 11/21/23 by Bhavya Mariscal MD gabapentin 100 mg PO DAILY Tobacco use date assessed: 11/21/23 Dental Screening Dental Screen Date: 11/21/23 Did you have a dental visit in the last 12 months?: No Did you have a dental problem in the last 6 months where you did not have access to dental care?: No HPI back pain HPI Details 53-year-old female smoker with a history of impaired glucose tolerance hypercholesterolemia generalized anxiety disorder and peripheral vascular disease last seen in 05/13/2023 patient's mammogram is up-to-date Cologuard negative 01/10/2022 review of the notes from the vascular surgeon seen in 04/12/2023 diagnosis of saphenous neuropathy after radiofrequency ablation patient has been placed on narcotic and has been advised to taper. And has been advised FRANCIA testing. 3 bottles of water a week and drinks juices but not enough. concern on macromastia 38 DD complains of low back pain now and states gets rashes under the breast and asking for referral. Also is asking for a vascular surgery referral as the previous vascular did not want to see her again. [facility] Medical History (Updated 11/21/23 @ 14:06 by Bhavya Mariscal MD) Back pain Acquired deformity of pinna, right ear Hypercholesterolemia Peripheral vascular disease Anxiety and depression Pap smear vag w ASC-US Vitamin D deficiency Hepatitis C virus infection cured after antiviral drug therapy Impaired fasting glucose Renal calculus Tobacco abuse Surgical History Varicose veins of both lower extremities H/O tubal ligation History of hemorrhoidectomy Family History (Updated 02/05/23 @ 14:40 by Dahlia Donnelly CMA) Father No problems noted. Mother No problems noted. Son No problems noted. Son No problems noted. Daughter No problems noted. Daughter No problems noted. Daughter No problems noted. Maternal Grandmother Breast cancer Social History (Updated 05/08/23 @ 13:24 by Bhavya Mariscal MD) Housing: Apartment Alcohol intake: never Patient Tobacco Use Status: Current everyday Tobacco user Tobacco use type: Cigarette Cigarettes Per Day: 3 Years Smoked: stopped 02/2023 smoking 4 cigarettes a day does marijuana e-Cigarette/Vaping Use: Never Used Second Hand Smoke Exposure: No Current occupational status: disabled Cognitive needs: No Hearing needs: No Vision needs: No Questionnaire Thrive Questionnaire Date Thrive assessed: 02/05/23 AUDIT C Alcohol Use Questionnaire (AUDIT-C) 1. How often do you have a drink containing alcohol?: Never 2. How many drinks containing alcohol do you have on a typical day when you are drinking?: 1 or 2 3. How often do you have six or more drinks on one occasion?: Never Total Score: 0 THERESA-7 AMB Questionnaire THERESA-7 Date THERESA - 7 assessed: 02/05/23 Source: Developed by Drs. Isiah Stanley, Kari Sprague, Troy Kendrick and colleagues, with an educational maxime from [email or web address]. Physical exam (Primary Care) Vital Signs: Last Vital Signs Pulse 72 11/21/23 13:33 BP 80/58 L 11/21/23 13:33 Pulse Ox 96 11/21/23 13:33 Oxygen Delivery Method Room Air 11/21/23 13:33 BMI result Body Mass Index 20.1 Tobacco/Smoking Status: Tobacco use Status Tobacco use date assessed 11/21/23 11/21/23 13:34 Patient Tobacco Use Status Current everyday Tobacco 11/21/23 13:34 Tobacco use type Cigarette 11/21/23 13:34 e-Cigarette/Vaping Use Never Used 11/21/23 13:34 Thrive Assessment: Date of Thrive Assessment Date Thrive assessed 02/05/23 11/21/23 13:34 Const General: alert; No acute distress Eyes Conjunctivae: conjunctivae normal Resp Auscultation: clear to auscultation bilaterally Cardio Rate: regular rate Rhythm: regular rhythm GI Inspection: Yes normal to inspection Extrem General: Yes normal to inspection and No edema Assessment and Plan Assessment & Plan (1) Hypercholesterolemia: Code(s): E78.00 - Pure hypercholesterolemia, unspecified Plan: Avoid fried foods, chicken skin, eggs, butter margarine, pastries and meat. Be it pork or beef they have a lot of cholesterol (2) Impaired fasting glucose: Code(s): R73.01 - Impaired fasting glucose Plan: Decrease the amount of carbohydrate intake, pasta, bread, rice and potatoes are all sugar and that is aside from all the sweet stuff, remember that fruits are good but they are Sweet also. (3) Generalized anxiety disorder: Comment: [facility] Therapist Elvia Code(s): F41.1 - Generalized anxiety disorder Plan: Continue to follow-up with counseling (4) Peripheral vascular disease: Comment: had vein ligation 2015 Code(s): I73.9 - Peripheral vascular disease, unspecified Plan: When sitting down elevate the legs, exercise, and support stockings placed on gabapentin for pain referral to the vascular surgeon. (5) Headache: Code(s): R51.9 - Headache, unspecified Plan: placed by in [place] gabapentin- will do referral to NEurology (6) Macromastia: Code(s): N62 - Hypertrophy of breast Plan: Patient wants a referral to plastic surgeon for breast reduction. Orders: Referrals Neurology Referral R51.9 - Headache, unspecified Plastic Surgery Referral N62 - Hypertrophy of breast Vascular Surgery Referral I73.9 - Peripheral vascular disease, unspecified Coding Level of Care Code Est Pt Level 4 (04362) Diagnoses Hypercholesterolemia E78.00 Impaired fasting glucose R73.01 Generalized anxiety disorder F41.1 Peripheral vascular disease I73.9 Headache R51.9 Macromastia N62
[2023-11-21 13:56] VITALS: BP 88/60
== END 2023-11-21 14:12 | disposition home or self-care (01) ==
PROVIDERS: PCP Internal Medicine; Visit Provider Internal Medicine
DX: E78.00 Pure hypercholesterolemia, unspecified (principal); I73.9 Peripheral vascular disease, unspecified; R73.01 Impaired fasting glucose; F41.1 Generalized anxiety disorder; R51.9 Headache, unspecified; N62 Hypertrophy of breast
CPT/HCPCS: 99214

== ENCOUNTER 2024-05-28 12:28 | Outpatient (AMB) | payer OTHER, SELFPAY ==
[2024-05-28 12:31] VITALS: BP 120/72; PULSE 80; O2SAT 98; BMI 20.1
--- NOTE | 2024-05-28 12:31 | A.OFFPC_ITS ---
Vital Signs 05/28/24 12:31 Height 5 ft 5 in Weight 121 lb BMI 20.1 BP 120/72 Blood Pressure Location Lt brachial Position Sitting Pulse 80 Pulse Source Pulse Oximeter Pulse Oximetry (%) 98 Oxygen Delivery Method Room Air Intake Visit Reasons: physical Allergies ibuprofen Adverse Reaction (Intermediate, Unverified 05/28/24 12:44) stomach pain acetaminophen [Tylenol] Adverse Reaction (Mild, Verified 05/28/24 12:31) Abdominal Pain Medication List - Last Reconciled 05/28/24 by Bhavya Mariscal MD Tobacco use date assessed: 05/28/24 Dental Screening Dental Screen Date: 11/21/23 HPI physical HPI Details The patient is a 54-year-old female presenting with several health concerns, including smoking cessation, back pain, and a need to update health screenings. She has a history of smoking, having attempted to quit previously but resumed smoking approximately two months later, currently smoking five cigarettes a day. The patient expressed interest in using nicotine patches and gum for cessation, acknowledging ADHD as a contributing factor to her smoking habit. The patient reports a history of back pain, attributed to lumbar spine misalignment with moderate bilateral facet joint arthropathy, observed in x-rays from 2021. She experiences pain, occasionally increasing during the winter, but denies any recent diagnosis or surgeries. Previously, posture was noted as a contributing factor, with recommendations for exercises and muscle relaxants. The patient is interested in further imaging to assess any progression. Additionally, the patient reported episodes of constipation, occasionally exacerbated by specific dietary choices such as milk consumption. She has noted hearing a high-pitched noise, suggesting tinnitus, but does not find it severe enough to seek a hearing test at this time. Past medical history of concern includes hypercholesterolemia, impaired glucose tolerance, generalized anxiety disorder, peripheral vascular disease, and nephrolithiasis. The last blood work in 2021 showed elevated blood sugar levels, with dietary habits possibly influencing these results. - Nicotine replacement therapy discussed for smoking cessation (hak-ja-ylqlhd dose patch and gum). - Due for mammogram, last completed in ut2022. - Referral for a lumbar x-ray to assess chronic back pain. - Eye doctor referral for updated glasse s prescription. - Vitamin D supplement prescribed; low l evels assumed due to geographical climate. - Encouraged fasting blood work to re-ev aluate glucose and cholesterol levels. - Encouraged physical activity and dieta ry fiber intake to manage constipation. - Smoker, approximately five cigarettes per day. Previous attempt to quit. - No alcohol or drug use. 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 - Previously experienced weight loss and desires to gain weight (requested 'Ensure' supplement). - Expresses disinterest in relationships currently to focus on personal goals such as buying a house. - Constitutional: Denies passing out, di zziness, fever; reports occasional headaches. - ENT: Reports tinnitus (ringing in ears ) but denies hearing loss necessitating a test. - Cardiovascular: Denies shortness of br eath or chest pain. - Gastrointestinal: Reports constipation ; denies nausea, vomiting or swallowing issues. Occasional milk-related gastrointestinal changes noted. - Genitourinary: Reports waking to urina te, correlated with fluid intake. - Musculoskeletal: Reports back pain due to lumbar misalignment. - Neurological: Denies problems. - Psychiatric: Noted anxiety due to ADHD . - Dermatologic: Denies issues. - Labs: Blood sugar previously elevated, last in 2021. Current lab work pending. - Diagnostics: Lumbar spine x-ray from 2 022 indicated mild anterior slippage and facet arthropathy. [facility] Medical History (Updated 05/28/24 @ 13:12 by Bhavya Mariscal MD) Anxiety and depression Chronic leg pain Amenorrhea Fall Ankle pain, right Cervical muscle strain Wrist pain, right Colon cancer screening Back pain Acquired deformity of pinna, right ear Hypercholesterolemia Peripheral vascular disease Pap smear vag w [facility] Vitamin D deficiency Hepatitis C virus infection cured after antiviral drug therapy Impaired fasting glucose Renal calculus Tobacco abuse Surgical History Varicose veins of both lower extremities H/O tubal ligation History of hemorrhoidectomy Family History (Updated 02/05/23 @ 14:40 by Dahlia Donnelly CMA) Father No problems noted. Mother No problems noted. Son No problems noted. Son No problems noted. Daughter No problems noted. Daughter No problems noted. Daughter No problems noted. Maternal Grandmother Breast cancer Social History (Updated 05/08/23 @ 13:24 by Bhavya Mariscal MD) Housing: Apartment Alcohol intake: never Patient Tobacco Use Status: Current everyday Tobacco user Tobacco use type: Cigarette Cigarettes Per Day: 3 Years Smoked: stopped 02/2023 smoking 4 cigarettes a day does marijuana e-Cigarette/Vaping Use: Never Used Second Hand Smoke Exposure: No Current occupational status: disabled Cognitive needs: No Hearing needs: No Vision needs: No Questionnaire PHQ-9 Over the last 2 weeks, how often have you been bothered by any of the following problems? 1. Little interest or pleasure in doing things: several days 2. Feeling down, depressed, or hopeless: several days 3. Trouble falling or staying asleep, or sleeping too much: not at all 4. Feeling tired or having little energy: not at all 5. Poor appetite or overeating: not at all 6. Feeling bad about yourself - or that you are a failure or have let yourself or your family down: not at all 7. Trouble concentrating on things, such as reading the newspaper or watching television: not at all 8. Moving or speaking so slowly that other people could have noticed. Or the opposite - being so fidgety or restless that you have been moving around a lot more than usual: not at all 9. Thoughts that you would be better off or of hurting yourself in some way: not at all Total score: 2 Depression Screening Interpretation: Positive Depression Screening Done: Yes 83174 - PHQ-9 Billing: Yes Source: Developed by Drs. Isiah Stanley, Kari Sprague, Troy Kendrick and colleagues, with an educational maxime from [employer] Thrive Questionnaire Date Thrive assessed: 05/28/24 I am a: Patient What is your living situation today?: I have a steady place to live Within the past 12 months, did the food you bought not last and you didn't have the money to get more?: Never true Within the past 12 months, did you worry whether your food would run out before you got money to buy more?: Never true Do you have trouble paying for medicines?: No Do you have trouble getting transportation to medical appointments?: No Do you have trouble paying your heating and electricity bill?: No Do you have trouble taking care of your child, family member or friend?: No Do you have trouble with day-to-day activities such as bathing, preparing meals, shopping, managing finances, etc.?: No Are you currently unemployed and looking for a job?: No Are you interested in more education?: No Currently or been in a relationship where the following occur: No concerns reported THRIVE Score: 0 AUDIT C Alcohol Use Questionnaire (AUDIT-C) 1. How often do you have a drink containing alcohol?: Never 2. How many drinks containing alcohol do you have on a typical day when you are drinking?: 1 or 2 3. How often do you have six or more drinks on one occasion?: Never Total Score: 0 THERESA-7 AMB Questionnaire THERESA-7 Date THERESA - 7 assessed: 05/28/24 Feeling nervous, anxious, or on edge: 0 = Not at all Not being able to stop or control worryin = Not at all Worrying too much about different things: 0 = Not at all Trouble relaxin = Not at all Being so restless that it is hard to sit still: 0 = Not at all Becoming easily annoyed or irritable: 0 = Not at all Feeling afraid as if something awful might happen: 0 = Not at all Total THERESA-7 score (0-4 normal; 5-9 mild; 10-14 moderate; 15-21 severe): 0 Source: Developed by Drs. Isiah Stanley, Kari Sprague, Troy Kendrick and colleagues, with an educational maxime from [employer]. THERESA-7 Assessment Billing THERESA-7 Assessment Tool: THERESA-7 Assessment 96268 Review of Systems Const Denies poor appetite and Denies weakness Eyes Denies no additional complaints ENT Reports Normal hearing present, Denies dizziness, Denies nasal congestion, Denies tinnitus and Denies sore throat Card Denies chest pain, Denies syncope, Denies rapid heart rate and Denies dyspnea Resp Denies cough and Denies dyspnea GI Denies change in stool character, Reports constipation, Denies diarrhea, Denies nausea and Denies vomiting Denies urinary frequency, Denies difficulty voiding and Denies dysuria Neuro Reports Normal hearing present, Denies confusion, Denies dizziness, Denies syncope and Denies weakness Psych Denies confusion Physical exam (Primary Care) Vital Signs: Oxygen Delivery Method Room Air 05/28/24 12:31 Tobacco/Smoking Status: Tobacco use Status Tobacco use date assessed 11/21/23 11/21/23 13:34 Patient Tobacco Use Status Current everyday Tobacco 11/21/23 13:34 Tobacco use type Cigarette 11/21/23 13:34 e-Cigarette/Vaping Use Never Used 11/21/23 13:34 Depression Screening Interpretation: Positive Thrive Assessment: Date of Thrive Assessment Date Thrive assessed 02/05/23 11/21/23 13:34 Currently or been in a relationship where the following occur: No concerns reported Const General: No confusion Orientation/consciousness: No confusion HENMT Head: Yes normocephalic Ears: external ears normal and TM's normal bilaterally Face and sinus: Yes normal facial exam Mouth: moist mucous membranes Throat: Yes tonsils normal Eyes Conjunctivae: conjunctivae normal Pupils: Equal, round and reactive pupils present and Pupil accommodation reflex normal Direct Ophthalmoscopy: normal light reflex Neck Neck: No lymphadenopathy Thyroid: Thyroid normal Chest Chest palpation & inspection: normal inspection of the chest Resp Effort & Inspection: normal respiratory effort and no audible wheezes Auscultation: clear to auscultation bilaterally, no crackles, no wheezes and lung sounds not diminished Cardio Rate: regular rate Rhythm: regular rhythm Peripheral pulses: radial pulses present and dorsalis pedis present GI Other: Declined Palpation (GI): no masses Auscultation: normal bowel sounds and normoactive bowel sounds Rectal Exam - Female: deferred Skin General skin exam: no rashes or lesions noted Rashes: no rashes Neuro General: No confusion Cranial nerves: Yes Equal, round and reactive pupils present and Yes Normal hearing present Cognition (Neuro): normal cognition Gait exam (Neuro): Normal gait present Motor exam (neuro): 5/5 motor strength present throughout Deep tendon reflexes (DTR's): Right brachioradialis reflex intensity grade: 2+, Left brachioradialis reflex intensity grade: 2+, Right patellar reflex intensity grade: 2+ and Left patellar reflex intensity grade: 2+ Extrem General: No edema Coding Level of Care Code Est Pt Prev Care 40-64y(92363) Diagnoses Annual physical exam Z00.00 Peripheral vascular disease I73.9 Impaired fasting glucose R73.01 Hypercholesterolemia E78.00 Renal calculus N20.0 Breast cancer screening by mammogram Z12.31 Acute midline low back pain without sciatica M54.5 Back pain laterality: midline Chronicity: acute Sciatica presence: without sciatica Tobacco abuse Z72.0 Tinnitus of both ears H93.13 Laterality: bilateral Slow transit constipation K59.01 Constipation type: slow transit constipation Cervical cancer screening Z12.4 Underweight R63.6 Additional Codes THERESA-7 Assessment Billing - THERESA-7 Assessment Tool: THERESA-7 Assessment 37208 ([id number]) PHQ-9 - 45173 - PHQ-9 Billing: Yes ([id number]) Assessment & Plan Assessment & Plan (1) Annual physical exam: Code(s): Z00.00 - Encounter for general adult medical examination without abnormal findings Category: Medical Plan: Patient is advised to eat healthy, keep well hydrated, keep active and have adequate sleep. (2) Peripheral vascular disease: Comment: had vein ligation 2015 Code(s): I73.9 - Peripheral vascular disease, unspecified Category: Medical Plan: When sitting down elevate the legs, exercise, and support stockings (3) Impaired fasting glucose: Code(s): R73.01 - Impaired fasting glucose Category: Medical Plan: Decrease the amount of carbohydrate intake, pasta, bread, rice and potatoes are all sugar and that is aside from all the sweet stuff, remember that fruits are good but they are Sweet also. Advised repeat blood work (4) Hypercholesterolemia: Code(s): E78.00 - Pure hypercholesterolemia, unspecified Category: Medical Plan: Avoid fried foods, chicken skin, eggs, butter margarine, pastries and meat. Be it pork or beef they have a lot of cholesterol advised blood work (5) Renal calculus: Comment: left November 2018 Code(s): N20.0 - Calculus of kidney Category: Medical Plan: Increase oral fluids (6) Breast cancer screening by mammogram: Code(s): Z12.31 - Encounter for screening mammogram for malignant neoplasm of breast Category: Medical Plan: Patient is reminded about mammogram (7) Low back pain: Comment: 06/12/2022Grade 1 anterolisthesis L4 over L5. No acute fracture or dislocation. 2. Moderate bilateral L4-L5 facet joint arthropathy. Code(s): M54.5 - Low back pain Category: Medical Qualifiers: Back pain laterality: midline Chronicity: acute Sciatica presence: without sciatica Qualified Code(s): M54.5 - Low back pain Plan: Keep active do stretches. Repeat chest x-ray requested (8) Tobacco abuse: Comment: srtill smoking Code(s): Z72.0 - Tobacco use Category: Medical Plan: will send in gum, discussed importance of stopping smoking (9) Tinnitus: Code(s): H93.19 - Tinnitus, unspecified ear Category: Medical Qualifiers: Laterality: bilateral Qualified Code(s): H93.13 - Tinnitus, bilateral Plan: Declined any testing for now (10) Constipation: Code(s): K59.00 - Constipation, unspecified Category: Medical Qualifiers: Constipation type: slow transit constipation Qualified Code(s): K59.01 - Slow transit constipation Plan: Three rules for constipation 1. Diet need to have a high fiber diet less of meat 2. Increase oral fluids 3. Exercise (11) Cervical cancer screening: Code(s): Z12.4 - Encounter for screening for malignant neoplasm of cervix Category: Medical Plan: Referral to Gynecology for Pap smear (12) Underweight: Code(s): R63.6 - Underweight Category: Medical Plan: ensure prescription made Plan - Hypercholesterolemia: Recommend updated lipid panel; maintain dietary control. - Impaired glucose tolerance: Fasting blood glucose test. Adjust dietary sugars. - Smoking: Initiate nicotine replacement with patch and gum, monitor response. - Peripheral vascular disease: Monitor for symptoms. - Nephrolithiasis: Hydrate adequately, consider renal ultrasound. - Lumbar spine issues: Obtain new lumbar x-ray; prescribe muscle relaxants and physical therapy. - Constipation: Initiate dietary modifications with increased fiber; prescribe laxatives if dietary changes are insufficient. - Tinnitus: Consider monitoring if worsening. - Vitamin D deficiency: Supplement with 2000 IU daily. During the visit, I discussed with the patient her smoking cessation options, emphasizing the benefits of combining a nicotine patch for steady release with gum to manage cravings. Risks of continued smoking were addressed, alongside the impact on existing conditions. Counseling was given on necessary lifestyle changes to manage her constipation, focusing on diet, hydration, and physical activity. The need for updated imaging to evaluate her spinal alignment and arthropathy was explained. Reinforcement of necessary health maintenance steps, including blood work for glucose and lipid management and regular screenings like mammograms, was made. The importance of follow-up and potential medication adjustments were emphasized, with plans to reassess her conditions. - Begin nicotine replacement as per discussion and monitor smoking habits. - Schedule and complete blood work, ensuring fasting beforehand. - Maintain adequate hydration and dietary modifications to manage constipation. - Follow up with scheduled lumbar x-ray; adhere to prescribed physical therapy. - Take prescribed vitamin D supplements daily. - Contact the clinic if any worsening symptoms occur, or for follow-up on blood work results. - Ensure lifestyle modifications, including increased activity levels and dietary fibre intake. - Follow up in six months or sooner if new symptoms arise. Orders: Orders XR lumbar spine 2-3V Today M54.5 - Low back pain PT Evaluation and Treatment Today M54.5 - Low back pain IRON PROFILE Today K59.00 - Constipation, unspecified Reticulocyte Count Today K59.00 - Constipation, unspecified US renal BI Today N20.0 - Calculus of kidney MM tomosynthesis screening BI Today Z12.31 - Encounter for screening mammogram for malignant neoplasm of breast Ferritin Today K59.00 - Constipation, unspecified Referrals MANAGER [employer] Referral Z12.4 - Encounter for screening for malignant neoplasm of cervix Ophthalmology Referral H53.9 - Unspecified visual disturbance Medications: New nicotine 1 patch transdermal DAILY 28 ea 0RF Z72.0 - Tobacco use [HEATING PAD] As directed 1 ea 0RF M54.5 - Low back pain sennosides-docusate sodium 8.6-50 mg (Senna Plus) 1 tab-cap PO BEDTIME 30 caps 3RF K59.00 - Constipation, unspecified cholecalciferol (vitamin D3) 50 mcg PO DAILY 90 days 90 caps 3RF E55.9 - Vitamin D deficiency, unspecified, K59.00 - Constipation, unspecified nicotine 1 patch transdermal Q24H 28 ea 1RF Z72.0 - Tobacco use nicotine (polacrilex) 2 mg buccal Q2H 100 ea 0RF Z72.0 - Tobacco use [ENSURE] As directed once a day 30 ea 0RF R63.6 - Underweight
--- OUTSIDE RECORDS SUMMARY | 2024-06-03 02:08 | XMS_ITS | Continuity of Care Document ---
Author Organization [facility] Address [address] [place] [address] [address] [place] [address] Phone Care Team Providers Care Engineering Analyst Name Role Phone Abhijit CASANOVA, HAYLIE, JAIMIE, [...] [address]- [address] & [place] [facility], [address] [place] [address] [address], [id number], [place] tel:[phone] CVR - [place] Chronic venous hypertension (idiopathic) with other complications of bilateral lower extremityPain in right legPain in left legRestless legs syndromeCramp and spasmLocalized edema 4 Abhijit CASANOVA, HAYLIE, JAIMIE Joyce. [address] [facility], [address], [place], [place], [id number] , [place]. tel:[phone] Referring Provider: Bhavya Mariscal MD, [address] [place] [address] [address] [facility], [place], [address]. tel:[phone] [facility], [address] [place] [address] [address], [id number], [place] [phone] CVR - [place] Chronic venous hypertension (idiopathic) with other complications of bilateral lower extremity 4 Abhijit CASANOVA, RVT, RPVI Isiah. [address] [facility], [address], [place], [place], [id number] , [place]. tel: [phone] Referring Provider: Bhavya Mariscal MD, [address] [place] [address] [address] [facility], [place], [address]. [phone] Family History Family Member Type Diagnosis Age At Onset No Information Payers Payer name Insurance type Covered alliance party ID Bridget singh(s) [facility] [place] [facility] [id number] Social History Type Description Quantity Date [...] lower extremity Assessments Type Assessment Date assessment Pain in left leg assessment Cramp and spasm assessment Localized edema assessment Pain in right leg assessment Chronic venous hyper tension (idiopathic) with other complications of bilateral lower extremity assessment Restless legs syndrome Patient Care Teams Name Effective Dates (start - stop) Status Members No Information
== END 2024-05-28 13:36 | disposition home or self-care (01) ==
PROVIDERS: PCP Internal Medicine; Visit Provider Internal Medicine
DX: Z00.00 Encounter for general adult medical examination without abnormal findings (principal); I73.9 Peripheral vascular disease, unspecified; R73.01 Impaired fasting glucose; E78.00 Pure hypercholesterolemia, unspecified; N20.0 Calculus of kidney; Z12.31 Encounter for screening mammogram for malignant neoplasm of breast; M54.50 Low back pain, unspecified; Z72.0 Tobacco use; H93.13 Tinnitus, bilateral; K59.01 Slow transit constipation; Z12.4 Encounter for screening for malignant neoplasm of cervix; R63.6 Underweight

== ENCOUNTER → 2024-05-28 12:28 | Outpatient (BNVA) | payer OTHER, SELFPAY | PROVIDERS: PCP Internal Medicine; Visit Provider Internal Medicine | DX: Z00.00 Encounter for general adult medical examination without abnormal findings (principal); I73.9 Peripheral vascular disease, unspecified; R73.01 Impaired fasting glucose; E78.00 Pure hypercholesterolemia, unspecified; M54.50 Low back pain, unspecified; H93.13 Tinnitus, bilateral; K59.01 Slow transit constipation; R63.6 Underweight; N20.0 Calculus of kidney; Z72.0 Tobacco use | CPT/HCPCS: 96127; 99396 ==

== ENCOUNTER 2024-06-09 08:57 | Outpatient (REF) | payer OTHER, SELFPAY ==
--- OUTSIDE RECORDS SUMMARY | 2024-06-09 09:12 | XMS_ITS | Continuity of Care Document ---
Author Organization [facility] Address [address] [place] [address] [address] [place] [address] Phone Care Team Providers Care Grades 1 6 Tutor Name Role Phone Abhijit CASANOVA, HAYLIE, JAIMIE, [...] [address]- [address] & [place] [facility], [address] [place] [address] [address], [id number], [place] tel:[phone] CVR - [place] Chronic venous hypertension (idiopathic) with other complications of bilateral lower extremityPain in right legPain in left legRestless legs syndromeCramp and spasmLocalized edema 4 Abhijit CASANOVA, HAYLIE, JAIMIE Joyce. [address] [facility], [address], [place], [place], [id number] , [place]. tel:[phone] Referring Provider: Bhavya Mariscal MD, [address] [place] [address] Dr [address] [facility], [place], [address]. tel:[phone] [facility], [address] [place] [address] [address], [id number], [place] [phone] CVR [place] Chronic venous hypertension (idiopathic) with other complications of bilateral lower extremity 4 Abhijit CASANOVA, RVT, RPVI Isiah. [address] [facility], [address], [place], [place], [id number] , [place]. tel: [phone] Referring Provider: Bhavya Mariscal MD, [address] [place] [address] [address] [facility], [place], [address]. [phone] Family History Family Member Type Diagnosis Age At Onset No Information Payers Payer name Insurance type Covered green party ID Bridget singh[place] [facility] [place] [facility] [id number] Social History Type Description Quantity Date [...] 22.0-22.9, adult Lifestyle education Related to B dxaa mass index (BMI) 22.0-22.9, adult Compression stocking usage as conservative measure Related to Chronic venous hypertension (idiopathic) with other complications of bilateral lower extremity Patient education booklet given Related to Chronic venous hypertension (idiopathic) with other complications of bilateral lower extremity Assessments Type Assessment Date assessment Localized edema assessment Cramp and spasm assessment Pain in left leg assessment Pain in right leg assessment Chronic venous hyper tension (idiopathic) with other complications of bilateral lower extremity assessment Restless legs syndrome Patient Care Teams Name Effective Dates (start - stop) Status Members No Information
[2024-06-09 09:19] LABS: MANUAL DIFF FLAG NO
[2024-06-09 10:10] LABS: Basophils Percent Auto 0.3 % (0-2); Eosinophils Absolute Auto 0.2 X10*3/uL (0.0-0.4); Eosinophils Percent Auto 2.7 % (0-4); Hematocrit 37.2 % (37.0-47.0); Imm Gran Abs Auto 0.02 X10*3/uL (0.00-0.03); Imm Gran Pct Auto 0.3 % (0.0-0.4); Immature Retic Fraction 6.4 % (3.0-15.9); Lymphocytes Absolute Auto 2.3 X10*3/uL (1.2-4.9); Lymphocytes Percent Auto 34.2 % (20-40); Mean Corpuscular HGB Conc 32.3 g/dl (31.0-35.0); Mean Corpuscular Volume 86.9 fL (80.0-98.0); Mean Platelet Volume 8.8 fL (9.4-12.3); Monocytes Absolute Auto 0.5 X10*3/uL (0.1-1.2); Monocytes Percent Auto 7.6 % (2-11); Neutrophils Absolute Auto 3.7 x10*3/uL (2.0-8.3); Neutrophils Percent Auto 54.9 % (45-73); Platelet Count 317 X10*3/uL (160-400); Red Blood Count 4.28 X10*6/uL (4.20-5.50); Red Cell Distribution Width 13.5 % (11.0-16.0); Retic HGB Equivalent 32.2 pg (30.0-35.0); Reticulocyte Percent 1.2 % (0.5-1.8); Reticulocytes Absolute 0.051 X10*6/uL (0.026-0.095); White Blood Count 6.7 X10*3/uL (4.8-10.8)
[2024-06-09 10:20] LABS: Estimated Average Glucose 111 mg/dL; Hemoglobin A1C 112.9851 umol/L; Hemoglobin A1c % 5.5 % (<6.0); Total Hemoglobin (HGBA1C) 3062.9773 umol/L
[2024-06-09 10:53] LABS: Alanine Aminotransferase 16 U/L (0-31); Albumin Level 4.2 g/dL (3.5-5.0); Alkaline Phosphatase 55 U/L (39-117); Anion Gap 8 (12-20); Aspartate Amino Transferase 20 U/L (5-31); Bilirubin Total 0.5 mg/dL (0.0-1.0); Blood Urea Nitrogen 15 mg/dL (9-16); Calcium 9.4 mg/dL (8.4-10.2); Carbon Dioxide 30 mmol/L (22-29); Chloride 106 mmol/L (96-108); Cholesterol 212 mg/dL (<200); Estimated Glomerular Filt Rate > 60; Glucose Random 97 mg/dL (60-115); HDL Cholesterol 51 mg/dL (>40); Iron 56 mcg/dL (30-160); LDL Cholesterol Calculated 137 mg/dL (<100); Percent Iron Saturation 21 % (15-50); Potassium 4.1 mmol/L (3.3-5.1); Sodium 140 mmol/L (135-145); Total Iron Binding Capacity 268 mcg/dL (228-428); Total Protein 7.2 g/dL (6.5-8.0); Triglycerides 123 mg/dL (<150); Unsaturated Iron Binding 212 ug/dL
[2024-06-09 10:55] LABS: Ferritin 69 ng/mL (10-250); Free T4 (Free Thyroxine) 1.03 ng/dL (0.71-1.85); Vitamin D 25-OH Total 38.9 ng/mL (>30)
[2024-06-09 11:10] LABS: Folate 12.2 ng/mL (> or = 4.0); Vitamin B12 800 pg/mL (200-900)
[2024-06-10 11:28] LABS: Prolactin 9.9 ng/mL
== END 2024-06-09 08:58 | disposition home or self-care (01) ==
LOC: HO.US 08:57
PROVIDERS: PCP Internal Medicine; Visit Provider Internal Medicine
DX: N20.0 Calculus of kidney (principal); E78.00 Pure hypercholesterolemia, unspecified; K59.00 Constipation, unspecified; N91.2 Amenorrhea, unspecified
CPT/HCPCS: 36415; 76775; 80053; 80061; 82306; 82607; 82728; 82746; 83036; 83540; 84146; 84439; 85025; 85045

== ENCOUNTER → 2024-06-09 09:17 | Outpatient (BNV) | payer OTHER, SELFPAY | PROVIDERS: PCP Internal Medicine; Visit Provider Radiology Diagnostic Radiology | DX: N20.0 Calculus of kidney (principal) | CPT/HCPCS: 76775 ==

== ENCOUNTER 2024-06-09 10:06 | Outpatient (REF) | payer OTHER, SELFPAY ==
--- OUTSIDE RECORDS SUMMARY | 2024-06-09 10:11 | XMS_ITS | Continuity of Care Document ---
Author Organization [facility] Address [address] [place] [address] [address] [place] [address] Phone Care Team Providers Care Charm Filter Operator Helper Name Role Phone Abhijit CASANOVA, HAYLIE, JAIMIE, [...] [address]- [address] & [place] [facility], [address] [place] [address] Dr [address]enc[address], [id number], [place] tel:[phone] CVR - [place] Chronic venous hypertension (idiopathic) with other complications of bilateral lower extremityPain in right legPain in left legRestless legs syndromeCramp and spasmLocalized edema 4 Abhijit CASANOVA, HAYLIE, JAIMIE Joyce. [address] [facility], [address], [place], [place], [id number] , [place]. tel:[phone] Referring Provider: Bhavya Mariscal MD, [address] [place] [address] Dr [address] [facility], [place], [address]. tel:[phone] [facility], [address] [place] [address] [address]A[place], [id number], [place] [phone] CV[place] - [place] Chronic venous hypertension (idiopathic) with other complications of bilateral lower extremity 4 Abhijit CASANOVA, RVT, RPVI Isiah. [address] [facility], [address], [place], [place], [id number] , [place]. tel: [phone] Referring Provider: Bhavya Mariscal MD, [address] [place] [address] [address] [facility], [place], [address]. [phone] Family History Family Member Type Diagnosis Age At Onset No Information Payers Payer name Insurance type Covered democrat ID Bridget singh(s) [facility] [id number] Social History Type Description Quantity Date [...] extremity assessment Pain in right leg assessment Pain in left leg assessment Cramp and spasm assessment Localized edema Patient Care Teams Name Effective Dates (start - stop) Status Members No Information
== END 2024-06-09 10:07 | disposition home or self-care (01) ==
LOC: HO.XRAY 10:06
PROVIDERS: PCP Internal Medicine; Visit Provider Internal Medicine
DX: M54.50 Low back pain, unspecified (principal)
CPT/HCPCS: 72100

== ENCOUNTER 2024-06-29 14:43 | Outpatient (AMB) | payer OTHER, SELFPAY ==
--- NOTE | 2024-06-29 14:51 | MHC.OFFVIS ---
Vital Signs 06/29/24 14:55 Height 5 ft 5 in Weight 129 lb 6 oz BMI 21.5 BP 108/68 Blood Pressure Location Rt brachial Position Sitting Pulse 76 Pulse Source Pulse Oximeter Pulse Oximetry (%) 96 Oxygen Delivery Method Room Air Intake Visit Reasons: 11/20 LVM+Let INP-Headache Intake Note: had lumbar x-ray 06/09 report not ready. Accompanied by: Self / Same As Patient Allergies ibuprofen Adverse Reaction (Intermediate, Verified 06/29/24 14:57) stomach pain acetaminophen [Tylenol] Adverse Reaction (Mild, Verified 06/29/24 14:57) Abdominal Pain Medication List - Last Reconciled 06/29/24 by JUAN Manning cholecalciferol (vitamin D3) 50 mcg PO DAILY 90 days [ENSURE As directed once a day] [HEATING PAD As directed] nicotine 1 patch transdermal DAILY nicotine 1 patch transdermal Q24H nicotine (polacrilex) 2 mg buccal Q2H sennosides-docusate sodium 8.6-50 mg (Senna Plus) 1 tab-cap PO BEDTIME HPI Comments Details: Right-handed 54-yr-old female presents for new pt evaluation of headache, however she thought today's appointment was to discuss her worsening low back pain. Pt reports in 2019, she fell while in a tub, when she grabbed onto the grab bar in her shower/tub, she fell back and struck the back of her head. She had brief LOC, the shower water woke her up. She was brought to the [facility], was evaluated and discharged home and to f/u w/ her PCP. This was during the pandemic, so she just stayed at home and rested. After this fall, she had frequent headaches which have been gradually improving. She also had worsening of her chronic lower back pain (unsure when the low back pain initially started), which has been worsening to the point where the pain prevents her from being able to walk at times. She describes the back pain as a sharp electrical pain, from the left lower buttock down her her leg into her foot. She has more recently started feeling this pain in the lower right buttock, but without radiation down leg.. The low back pain pain used to come and go, but more recently, it has been more constant. Aggravating factors: straining during a BM, it causes the pain to worsen. Alleviating factors: laying down and not moving, but cannot do this all day. Endorses LLE numbness/tingling when sitting or standing (only subsides w/ laying down and doing nothing), Denies B&B incontinence, skin color changes, distal swelling, muscle cramps, RLE numbness/tingling. Is not taking any medications for this. She previously tried gabapentin, which caused swelling. She reports allergies to NSAIDs and Tylenol. Has not tried PT for this. Recently had a l-spine X-ray- full report pending. PMH and ROS are notable for:? General: Sleep difficulties d/t her back pain- as it wakes her up Musculoskeletal disorders or injury: also has neck and upper spine pain. History of concussion/head injury: As above Mood d/o: h/o Anxiety Respiratory d/o: denies CV disease: Denies Clotting or hematology d/o: Denies h/o clot. Has had BLE varicose laser tx at least 10 yrs ago- states current back pain s/s are different than her previous vascular dz s/s. 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 Age/time of onset: 50 yrs old Preceding causes: Fall with positive occipital region head strike. Typical headache characteristics: Prodrome symptoms: unsure Aura: denies Pain intensity: mild-moderate Location, quality, characteristics: bilateral or unilateral anabaptism throbbing Associated symptoms: photophobia, phonophobia, activity intolerance, Postdrome: denies Triggers: Dehydration, poor sleep, increased low back pain Time of day: No specific time of day Duration and Frequency: Can last 2-5 hours. She reports she did not have any attacks in May. How does headache impact your life? Usually is able to do what she needs to do during a headache attack. Current acute headache medication use/interventions: None Current preventative medication use: None Non-pharmacological interventions: Rest in a dark and quiet space. [facility] Medical History Anxiety and depression Chronic leg pain Amenorrhea Fall Ankle pain, right Cervical muscle strain Wrist pain, right Colon cancer screening Back pain Acquired deformity of pinna, right ear Hypercholesterolemia Peripheral vascular disease Pap smear vag w [facility] Vitamin D deficiency Hepatitis C virus infection cured after antiviral drug therapy Impaired fasting glucose Renal calculus Tobacco abuse Surgical History Varicose veins of both lower extremities H/O tubal ligation History of hemorrhoidectomy Family History Father No problems noted. Mother No problems noted. Son No problems noted. Son No problems noted. Daughter No problems noted. Daughter No problems noted. Daughter No problems noted. Maternal Grandmother Breast cancer Social History Housing: Apartment Alcohol intake: never Patient Tobacco Use Status: Current everyday Tobacco user Tobacco use type: Cigarette Cigarettes Per Day: 3 Years Smoked: stopped 02/2023 smoking 4 cigarettes a day does marijuana e-Cigarette/Vaping Use: Never Used Second Hand Smoke Exposure: No Current occupational status: disabled Cognitive needs: No Hearing needs: No Vision needs: No Physical Exam Vital Signs: Last Vital Signs Pulse 76 06/29/24 14:55 BP 108/68 06/29/24 14:55 Pulse Ox 96 06/29/24 14:55 Oxygen Delivery Method Room Air 06/29/24 14:55 BMI result Body Mass Index 21.5 Const Other: Patient is visibly uncomfortable today due to low back pain. Orientation/consciousness: patient oriented x3 Resp Effort & Inspection: normal respiratory effort and able to speak in complete sentences Back/Spine/Pelvis Other: Decreased cervical range of motion throughout, more so in extension and left lateral movement Negative bilateral Spurling Bilateral, left greater than right, thayer paraspinal tightness and tenderness, more so in lower lumbar and sacral region. Neuro Other: BUE muscle strength 5/5 RLE muscle strength 5/5 LLE muscle strength exam limited by pain, 5-/5 Slow to rise, uses arms to push up from chair, antalgic gait General: patient oriented x3 Cranial nerves: Yes CN's II-XII intact bilaterally Cognition (Neuro): normal cognition Deep tendon reflexes (DTR's): Right triceps reflex intensity grade: 2+, Left triceps reflex intensity grade: 2+, Rt Biceps (C5, C6): 2+, Left biceps reflex intensity grade: 2+, Right brachioradialis reflex intensity grade: 2+, Left brachioradialis reflex intensity grade: 2+, Right patellar reflex intensity grade: 2+ and Left patellar reflex intensity grade: 2+ Coordination: [id number] test normal Pupils: Normal pupillary reactivity/response: bilateral Psych Appearance: grossly normal Mental Status: mental status grossly normal Speech and movement: Clear speech present Affect: normal affect Attitude: cooperative Thought process: Normal thought process present Assessment & Plan Assessment & Plan (1) Migraine without aura and without status migrainosus, not intractable: Comment: Postconcussive s/p fall with positive occipital region head strike w/ brief LOC in 2019. Code(s): G43.009 - Migraine without aura, not intractable, without status migrainosus Category: Medical (2) Low back pain radiating to left leg: Code(s): M54.50 - Low back pain, unspecified; M79.605 - Pain in left leg Category: Medical (3) Paraspinal muscle spasm: Code(s): M62.830 - Muscle spasm of back Category: Medical Plan For bilateral left greater than right low back pain w/ left lower back pain radiating into LLE: Reviewed L-spine x-ray images, we will await full report. Reviewed previous vascular note, which made comment that bilateral lower extremity pain was exacerbated following her previous RFA ablation for superficial venous insufficiency. Patient was previously managed with scheduled oxycodone, however this has been gradually tapered off with plan to start patient on Cymbalta, however is unclear if patient ever tried this. Patient did not specifically request oxycodone or alternate opioid today. And as her pain would likely be much more responsive to a muscle relaxer or TCA/SNRIi/antiepileptic treatment would not resume an opioid treatment plan at this time. Start magnesium 400 mg q.h.s.. Start cyclobenzaprine 5 mg q.h.s. Reviewed common side effects of the above medications, and advised to notify us with any untoward effects or suboptimal response. Trial warm pack times 20 minutes every 1-2 hours p.r.n., may alternate with ice pack times 20 minutes every 1-2 hours p.r.n. Patient encouraged to walk with her cane until her back pain is better managed. Start PT, as ordered by PCP. We will initiate order for pain management referral- patient agrees to see [facility]. Previous medication trials: Gabapentin caused swelling, NSAIDs cause GI upset and hives and itching. Tylenol caused abdominal pain. Note patient states she is not a fan of taking medications. For postconcussive headache with migraine phenotype: Improving overall. Start magnesium 400 mg q.h.s. Patient seen in collaboration with Dr. Eunice Beaulieu Will follow-up upon review of above and patient to follow-up in clinic in 6 months or sooner prn. Orders: Referrals Pain Management Referral G43.009 - Migraine without aura, not intractable, without status migrainosus, M54.50 - Low back pain, unspecified, M79.605 - Pain in left leg Medications: New cyclobenzaprine 5 mg PO BID 30 days PRN 60 tabs 1RF muscle spasm magnesium oxide may hold for loose stools 400 mg PO BEDTIME 30 days 30 tabs 6RF Coding Level of Care Code New Pt Level 4 (88859) Diagnoses Migraine without aura and without status migrainosus, not intractable G43.009 Low back pain radiating to left leg M54.50; M79.605 Paraspinal muscle spasm M62.830
[2024-06-29 14:55] VITALS: BP 108/68; PULSE 76; O2SAT 96; BMI 21.5
--- OUTSIDE RECORDS SUMMARY | 2024-06-29 16:54 | XMS_ITS | Continuity of Care Document ---
Author Organization [facility] Address [address] [place] [address] [address] [place] [address] Phone Care Team Providers Care Igniter Assembler Name Role Phone Abhijit CASANOVA, HAYLIE, JAIMIE, [...] [address]- [address] & [place] [facility], [address] [place] [address] Dr [address]A[place], [id number], [place] tel:[phone] CVR - [place] - [place] Chronic venous hypertension (idiopathic) with other complications of bilateral lower extremityPain in right legPain in left legRestless legs syndromeCramp and spasmLocalized edema 4 Abhijit CASANOVA, HAYLIE, JAIMIE Joyec. [address] [facility], [address], [place], [place], [id number] , [place]. tel:[phone] Referring Provider: Bhavya Mariscal MD, [address] [place] [address] Dr [address] [facility], [place], [address]. tel:[phone] [facility], [address] [place] [address] [address]A[place], [id number], [place] [phone] CV[place] - [place] Chronic venous hypertension (idiopathic) with other complications of bilateral lower extremity 4 Abhijit CASANOVA, RVT, RPVI Isiah. [address] [facility], [address], [place], [place], [id number] , [place]. tel: [phone] Referring Provider: Bhavya Mariscal MD, [address] [place] [address] [address] [facility], [place], [address]. [phone] Family History Family Member Type Diagnosis Age At Onset No Information Payers Payer name Insurance type Covered republican ID Bridget singh(s) [facility] [id number] Social History Type Description Quantity Date [...]
== END 2024-06-29 16:10 | disposition home or self-care (01) ==
PROVIDERS: PCP Internal Medicine; Visit Provider Nurse Practitioner Family
DX: G43.009 Migraine without aura, not intractable, without status migrainosus (principal); M54.50 Low back pain, unspecified; M79.605 Pain in left leg; M62.830 Muscle spasm of back
CPT/HCPCS: 99204

== ENCOUNTER → 2024-06-29 14:43 | Outpatient (BNVA) | payer OTHER, SELFPAY | PROVIDERS: PCP Internal Medicine; Visit Provider Nurse Practitioner Family | DX: G43.009 Migraine without aura, not intractable, without status migrainosus (principal); M54.50 Low back pain, unspecified; M79.605 Pain in left leg; M62.830 Muscle spasm of back | CPT/HCPCS: 99202 ==

== ENCOUNTER 2024-08-25 11:14 | Outpatient (AMB) | payer OTHER, SELFPAY ==
[2024-08-25 11:16] VITALS: BP 118/60; PULSE 82; TEMP 36.2; O2SAT 99; BMI 22.3
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
--- OUTSIDE RECORDS SUMMARY | 2024-08-25 14:07 | XMS_ITS | Clinical Summary ---
Author Organization [facility] Address [address] [place] [address] Care Team Providers Care Machine Try Out Setter Name Role Phone Bhavya Mariscal MD Primary Care Provider [phone] Social History Tobacco Use Types Packs/Day Years Used Date Smoking Tobacco: Never Assessed Comments Unknown Sex and Gender Information Value Date Recorded Sex Assigned at Not on file Legal Sex Female 4:38 AM EST Gender Identity Not on file Sexual Orientation Not on file Plan of Treatment Health Maintenance Due Date Last Done Comments Breast Cancer Screening 1970 DTaP,Tdap,and Td Vaccines (1 - Tdap) 1989 Hepatitis B Vaccines (1 of 3 - 19+ 3-dose series) 1989 Cervical Cancer Screening: P ap Smear 1991 Pneumococcal Vaccine: 50+ Ye ars (1 of 1 - PCV) 2020 Zoster Vaccines (1 of 2) 2020 Colorectal Cancer Screening: Colonoscopy 05/27/2022 Depression Screening 05/27/2022 HIV Screening 05/27/2022 Hepatitis C Screening 05/27/2022 Social Influencers of Health Screening 05/27/2022 COVID-19 Vaccine (2023-2 5 season) 2024 Influenza Vaccine (#1) 2024 HIB Vaccines Aged Out No longer eligi ble based on patient's age to complete this topic HPV Vaccines Aged Out No longer eligi ble based on patient's age to complete this topic Hepatitis A Vaccines Aged Out No long er eligible based on patient's age to complete this topic IPV Vaccines Aged Out No longer eligi ble based on patient's age to complete this topic MMR Vaccines Aged Out No longer eligi ble based on patient's age to complete this topic Meningococcal ACWY Vaccine Aged Out N o longer eligible based on patient's age to complete this topic Meningococcal B Vacine Aged Out No lo nger eligible based on patient's age to complete this topic Pneumococcal Vaccine: Pediat rics (0 to 5 Years) and At-Risk Patients (6 to 64 Years) Aged Out No longer eligible b ased on patient's age to complete this topic RSV Immunization Patients Un kim 20 months Aged Out No longer eligible b ased on patient's age to complete this topic Varicella Vaccines Aged Out No longer eligible based on patient's age to complete this topic Care Teams Machine Try Out Setter Relationship Specialty Start Date End Date Bhavya Mariscal MD [address] [place] [address] Dr [address] [facility] [place] [address] PCP - General Internal Medicine 01/23/22
== END 2024-08-25 12:15 | disposition home or self-care (01) ==
PROVIDERS: PCP Internal Medicine; Visit Provider Internal Medicine
DX: M54.50 Low back pain, unspecified (principal); M79.605 Pain in left leg; G43.009 Migraine without aura, not intractable, without status migrainosus; F41.1 Generalized anxiety disorder; E78.00 Pure hypercholesterolemia, unspecified; Z72.0 Tobacco use

== ENCOUNTER → 2024-08-25 11:14 | Outpatient (BNVA) | payer OTHER, SELFPAY | PROVIDERS: PCP Internal Medicine; Visit Provider Internal Medicine | DX: M54.50 Low back pain, unspecified (principal); M79.604 Pain in right leg; G43.009 Migraine without aura, not intractable, without status migrainosus; F41.1 Generalized anxiety disorder; E78.00 Pure hypercholesterolemia, unspecified; Z72.0 Tobacco use | CPT/HCPCS: 96127; 99212 ==

== ENCOUNTER 2024-10-26 09:28 | Outpatient (AMB) | payer OTHER, SELFPAY ==
[2024-10-26 09:37] VITALS: BP 100/58; PULSE 81; O2SAT 98; BMI 22.3
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
--- OUTSIDE RECORDS SUMMARY | 2024-10-26 10:16 | XMS_ITS | Clinical Summary ---
Author Organization [facility] Address [address] [place] [address] Care Team Providers Care Food Safety Officer Name Role Phone Bhavya Mariscal MD Primary Care Provider [phone] Social History Tobacco Use Types Packs/Day Years [...] Influencers of Health Screening 05/27/2022 COVID-19 Vaccine ( - 2023-2 5 season) 2024 Influenza Vaccine (Season Ended) 2025 HIB Vaccines Aged Out No longer eligi [...] age to complete this topic Meningococcal B Vaccine Aged Out No l onger eligible based on patient's age to complete [...] age to complete this topic Care Teams Food Safety Officer Relationship Specialty Start Date End Date Bhavya Mariscal MD [address] [place] [address] Dr [address] [facility] [place] [address] PCP - General Internal Medicine 01/23/22
--- OUTSIDE RECORDS SUMMARY | 2024-10-26 10:16 | XMS_ITS | Continuity of Care Document ---
Author Organization [facility] Address [address] [place] [address] [address] [place] [address] Phone Care Team Providers Care Automotive Collision Repair Instructor Name Role Phone Abhijit CASANOVA, HAYLIE, JAIMIE, sIiah Unavailable U navailable Procedures Procedure Date Offic Cons New/estab Mod-hi 60- CT & [place] Duplex Scan-extrem Veins; Comp- [place] & [place] Advance Directives Directive Yes / No Effective Date File Name No Information Encounters Encounter Description Practice Location Reason(s) For Visit Diagnoses Date Provider Providers Copied on Encounter Offic Cons New/estab Mod-hi 60- [place] & [place] [facility], [address] [place] [address] [address], [id number], [place] tel:[phone] CVR - [place] - Section Chronic venous hypertension (idiopathic) with other complications of bilateral lower extremityPain in right legPain in left legRestless legs syndromeCramp and spasmLocalized edema 4 Abhijit CASANOVA, HAYLIE, JAIMIE Joyce. [address] [facility], [address], [place], [place], [id number] , [place]. tel:[phone] Referring Provider: Bhavya Mariscal MD, [address] [place] [address] [address] [facility], [place], [address]. tel:[phone] [facility], [address] [place] [address] [address], [id number], [place] [phone] CVR - [place] - Section Chronic venous hypertension (idiopathic) with other complications of bilateral lower extremity 4 Abhijit CASANOVA, RVT, RPVI Isiah. [address] [facility], [address], [place], [place], [id number] , [place]. tel: [phone] Referring Provider: Bhavya Mariscal MD, [address] [place] [address] [address] [facility], [place], [address]. [phone] Family History Family Member Type Diagnosis Age At Onset No Information Payers Payer name Insurance type Covered republican ID Bridget singh(s[place] [facility] [place] [facility] [id number] Social History Type Description Quantity Date [...]
== END 2024-10-26 12:05 | disposition home or self-care (01) ==
LOC: HO.HMCH 09:29
PROVIDERS: PCP Internal Medicine; Visit Provider Internal Medicine
DX: M54.50 Low back pain, unspecified (principal); M79.605 Pain in left leg; I73.9 Peripheral vascular disease, unspecified; F41.1 Generalized anxiety disorder; E78.00 Pure hypercholesterolemia, unspecified; Z72.0 Tobacco use; N95.1 Menopausal and female climacteric states

== ENCOUNTER → 2024-10-26 09:28 | Outpatient (BNVA) | payer OTHER, SELFPAY | PROVIDERS: PCP Internal Medicine; Visit Provider Internal Medicine | DX: M54.50 Low back pain, unspecified (principal); M79.605 Pain in left leg; I73.9 Peripheral vascular disease, unspecified; F41.1 Generalized anxiety disorder; E78.00 Pure hypercholesterolemia, unspecified; N95.1 Menopausal and female climacteric states; Z72.0 Tobacco use | CPT/HCPCS: 99212 ==

== ENCOUNTER → 2024-11-02 17:39 | Outpatient (BNV) | payer OTHER, SELFPAY | PROVIDERS: PCP Internal Medicine; Visit Provider Radiology Diagnostic Radiology | DX: M47.817 Spondylosis without myelopathy or radiculopathy, lumbosacral region (principal); M48.07 Spinal stenosis, lumbosacral region; M51.369 Other intervertebral disc degeneration, lumbar region without mention of lumbar back pain or lower extremity pain | CPT/HCPCS: 72148 ==

== ENCOUNTER 2024-11-02 18:05 | Outpatient (REF) | payer OTHER, SELFPAY ==
--- NOTE | ~2024-11-02 | MR_ITS ---
EXAMINATION: MR LUMBAR SPINE WITHOUT CONTRAST CLINICAL INFORMATION: Low back pain, unspecified; low back pain to left lower extremity status post fall a few months prior. COMPARISON: No prior MRI. Lumbar spine radiographs 06/09/2024. TECHNIQUE: Multiplanar multisequence MR imaging of the lumbar spine was done without IV contrast. Examination was performed on a 1.5 Noemy Siemens magnet, utilizing standard sequences. FINDINGS: CORONAL ALIGNMENT: -There is a mild levoconvex scoliosis, apex at L2-3. SAGITTAL ALIGNMENT: - There is a normal lordosis. -There is a 5 mm degenerative anterolisthesis of L4 on L5. -Sagittal alignment is otherwise anatomic. LUMBOSACRAL JUNCTION: -Normal. There are 5 [id number] lumbar-type vertebral bodies. VERTEBRAL BODIES/BONE MARROW: -There are no compression deformities or acute fractures. -There are marked edematous endplate changes present at L5-S1, with superimposed fatty type endplate changes. There is edema within the right L5 pedicle and facet joints, likely degenerative. -There are no additional regions of abnormal bone marrow edema or infiltrating abnormal signal. DISCS: -Severe loss of disc height and signal at L5-S1. -Moderate loss of disc height and signal at L3-4 and L4-5. -Disc levels above L3 appear normal. SPINAL CANAL: -There is congenital spinal canal narrowing, short pedicles mainly involving L4-S1. This will exacerbate acquired spondylosis. CONUS MEDULLARIS: -Terminates at superior endplate of L1. Morphology and signal is normal. INTRADURAL NERVE ROOTS: - Normal distribution within the thecal sac. No masses or clumping. Axial Disc Space Images: T12-L1: No central canal or neural foraminal narrowing. L1-L2: No central canal or neural foraminal narrowing. L2-L3: No central canal or neural foraminal narrowing. L3-L4: Minimal shallow disc bulging, mild hypertrophic degenerative facet changes bilaterally, mild posterior ligamentous thickening/infolding, with the findings resulting in mild central canal narrowing, mild bilateral subarticular recess narrowing, and mild bilateral neural foraminal narrowing] greater than left. L4-L5: There is disc uncovering secondary to anterolisthesis. There are end-stage hypertrophic degenerative facet changes bilaterally, with posterior ligamentous thickening/infolding. There is congenital spinal canal narrowing. The combination of findings is resulting in severe central canal stenosis, severe bilateral subarticular recess stenosis, and moderate to severe bilateral neural foraminal stenosis left greater than right. AP diameter of the thecal sac has been reduced to 4 mm. There is certainly impingement upon the traversing bilateral L5 nerve roots. L5-S1: Congenital spinal canal narrowing. Congenital spinal canal narrowing. There is a diffuse disc bulge with a superimposed left paracentral and lateral extrusion of disc material. Coupled with mild to moderate hypertrophic degenerative facet changes, this is resulting in moderate central canal stenosis, severe left subarticular recess stenosis with contact and impingement of the left traversing S1 nerve root. There is severe left and mild to moderate right neural foraminal narrowing. There is likely impingement of the exiting left L5 nerve root. IMAGED SI JOINTS: -Mild degenerative arthritis bilaterally. PARAVERTEBRAL AND INCLUDED EXTRASPINAL SOFT TISSUES: -Aorta is normal in caliber. -There are tiny cysts in the left kidney. -No additional abnormalities. MR/MR lumbar spine wo con IMPRESSION: 1. Significant spondylosis relatively confined to L4-5 and L5-S1 as described above, superimposed upon a congenitally narrow central canal. Severe central canal stenosis at L4-5. There is likely impingement of the bilateral traversing L5 nerve roots at this level. 2. Severe left lateral recess stenosis at L5-S1 with impingement of the left traversing S1 nerve roots secondary to a left paracentral and lateral disc extrusion. 3. Severe left neural foraminal impingement at L5-S1, with likely impingement of the exiting left L5 nerve root. 4. Severe edematous endplate changes at L5-S1 extending into the right L5 pedicle. 5. See above for details. Electronically signed by: Rishabh Monroy MD 11/03/2024 08:27 AM EDT
== END 2024-11-02 18:06 | disposition home or self-care (01) ==
LOC: HO.MRI 18:05
PROVIDERS: PCP Internal Medicine; Visit Provider Internal Medicine
DX: M54.50 Low back pain, unspecified (principal); M79.605 Pain in left leg
CPT/HCPCS: 72148

== ENCOUNTER 2024-11-20 09:08 | Outpatient (AMB) | payer OTHER, SELFPAY ==
--- NOTE | 2024-11-20 09:12 | MHC.OFFVIS ---
Vital Signs 11/20/24 09:17 Height 5 ft 5 in Weight 135 lb 4 oz BMI 22.5 BP 126/61 Blood Pressure Location Lt brachial Position Sitting Pulse 80 Pulse Source Pulse Oximeter Pulse Oximetry (%) 97 Oxygen Delivery Method Room Air Intake Visit Reasons: Radiculopathy, lumbar region Intake Note: Pain today 04/02 Gin Operator Required: No Accompanied by: Self / Same As Patient Allergies ibuprofen Adverse Reaction (Intermediate, Verified 11/20/24 09:17) stomach pain acetaminophen [Tylenol] Adverse Reaction (Mild, Verified 11/20/24 09:17) Abdominal Pain HPI Comments Details: The patient is a 54-year-old female presenting with low back pain with radiculopathy. She reports the onset of this pain to be since last year, following an encounter with law enforcement that resulted in a fall. The pain is primarily on the left side but radiates to both legs, accompanied by numbness and tingling in the feet. Physical therapy has been avoided due to the severity of the pain. Current symptoms have extended to urinary incontinence, leg weakness and numbness, and she reports worsening conditions associated with movements like coughing or sneezing. Diagnostic results indicate severe spinal stenosis and disc herniation at L4-L5 and L5-S1 as noted below. Patient reports she was recently seen at [facility] and was told to see Neurosurgery. Patient declined interventional treatments at our office and plans to see [facility] Neurosurgery on 11/30/24. She requests opioid medication to control her spinal stenosis related pain that has been worsening and negatively affecting her ADLs, mobility, sleep, mood and quality of life. - Onset: Began last year, 01/17/24 - Timing: Chronic, ongoing since the incident - Quality/Character: Electrical in nature, pulsing, throbbing, pounding, stabbing, sharp, pinching, cramping, burning, tingling - Primary Location: Lower back, near spine - Radiates: Both legs, more on the left side, posteriorly and anteriorly - Exacerbating Factors: Coughing, sneezing, any movement, changing positing, slight bending, walking, standing, prolonged sitting - Relieving Factors: Laying down, resting, staying still - Interference: Mobility and daily functions affected - Affect: Expresses mood disturbances, waking up angry at herself - Analgesia: No current opioid use; pain remains severe - Adverse Effects: Nausea with prior Tylenol; not using current medications - Activities of Daily Living: Impacted by pain, affecting mood and functions - Aberrant Drug Related Behaviors: No reported drug-related aberrant behaviors [facility] Medical History Anxiety and depression Chronic leg pain Amenorrhea Fall Ankle pain, right Cervical muscle strain Wrist pain, right Colon cancer screening Back pain Acquired deformity of pinna, right ear Hypercholesterolemia Peripheral vascular disease Pap smear vag w ASC-US Vitamin D deficiency Hepatitis C virus infection cured after antiviral drug therapy Impaired fasting glucose Renal calculus Tobacco abuse Surgical History Varicose veins of both lower extremities H/O tubal ligation History of hemorrhoidectomy Family History Father No problems noted. Mother No problems noted. Son No problems noted. Son No problems noted. Daughter No problems noted. Daughter No problems noted. Daughter No problems noted. Maternal Grandmother Breast cancer Social History Housing: Apartment Alcohol intake: never Patient Tobacco Use Status: Current everyday Tobacco user Tobacco use type: Cigarette Cigarettes Per Day: 3 Years Smoked: stopped 02/2023 smoking 4 cigarettes a day does marijuana e-Cigarette/Vaping Use: Never Used Second Hand Smoke Exposure: No Current occupational status: disabled Cognitive needs: No Hearing needs: No Vision needs: No Review of Systems Const Details: - Neurological: Reports numbness and tingling in feet, denies saddle anesthesia - Genitourinary: Reports urinary incontinence, denies bowel dysfunction - Musculoskeletal: Reports low back pain with radicular symptoms All systems reviewed & are unremarkable except as noted in HPI and below Physical Exam Vital Signs: Last Vital Signs Pulse 80 11/20/24 09:17 BP 126/61 11/20/24 09:17 Pulse Ox 97 11/20/24 09:17 Oxygen Delivery Method Room Air 11/20/24 09:17 BMI result Body Mass Index 22.5 General: Appears afebrile. Moderate distress due to pain. Alert and oriented. Mood and affect appropriate. Follows and participates in conversation appropriately. Respiratory effort is unlabored. No cough. Able to transition from sit to stand unassisted. Antalgic gait, mild limping due to pain. Unable to perform back exam due to severe pain. Back/Spine/Pelvis Other: Patient declined back exam due to pain. Results Reviewed Results Reviewed: MR LUMBAR SPINE WITHOUT CONTRAST 11/03/24 CLINICAL INFORMATION: Low back pain, unspecified; low back pain to left lower extremity status post fall a few months prior. COMPARISON: No prior MRI. Lumbar spine radiographs 06/09/2024. TECHNIQUE: Multiplanar multisequence MR imaging of the lumbar spine was done without IV contrast. Examination was performed on a 1.5 Noemy Siemens magnet, utilizing standard sequences. FINDINGS: CORONAL ALIGNMENT: -There is a mild levoconvex scoliosis, apex at L2-3. SAGITTAL ALIGNMENT: - There is a normal lordosis. -There is a 5 mm degenerative anterolisthesis of L4 on L5. -Sagittal alignment is otherwise anatomic. LUMBOSACRAL JUNCTION: -Normal. There are 5 [id number] lumbar-type vertebral bodies. VERTEBRAL BODIES/BONE MARROW: -There are no compression deformities or acute fractures. -There are marked edematous endplate changes present at L5-S1, with superimposed fatty type endplate changes. There is edema within the right L5 pedicle and facet joints, likely degenerative. -There are no additional regions of abnormal bone marrow edema or infiltrating abnormal signal. DISCS: -Severe loss of disc height and signal at L5-S1. -Moderate loss of disc height and signal at L3-4 and L4-5. -Disc levels above L3 appear normal. SPINAL CANAL: -There is congenital spinal canal narrowing, short pedicles mainly involving L4-S1. This will exacerbate acquired spondylosis. CONUS MEDULLARIS: -Terminates at superior endplate of L1. Morphology and signal is normal. INTRADURAL NERVE ROOTS: - Normal distribution within the thecal sac. No masses or clumping. Axial Disc Space Images: T12-L1: No central canal or neural foraminal narrowing. L1-L2: No central canal or neural foraminal narrowing. L2-L3: No central canal or neural foraminal narrowing. L3-L4: Minimal shallow disc bulging, mild hypertrophic degenerative facet changes bilaterally, mild posterior ligamentous thickening/infolding, with the findings resulting in mild central canal narrowing, mild bilateral subarticular recess narrowing, and mild bilateral neural foraminal narrowing] greater than left. L4-L5: There is disc uncovering secondary to anterolisthesis. There are end-stage hypertrophic degenerative facet changes bilaterally, with posterior ligamentous thickening/infolding. There is congenital spinal canal narrowing. The combination of findings is resulting in severe central canal stenosis, severe bilateral subarticular recess stenosis, and moderate to severe bilateral neural foraminal stenosis left greater than right. AP diameter of the thecal sac has been reduced to 4 mm. There is certainly impingement upon the traversing bilateral L5 nerve roots. L5-S1: Congenital spinal canal narrowing. Congenital spinal canal narrowing. There is a diffuse disc bulge with a superimposed left paracentral and lateral extrusion of disc material. Coupled with mild to moderate hypertrophic degenerative facet changes, this is resulting in moderate central canal stenosis, severe left subarticular recess stenosis with contact and impingement of the left traversing S1 nerve root. There is severe left and mild to moderate right neural foraminal narrowing. There is likely impingement of the exiting left L5 nerve root. IMAGED SI JOINTS: -Mild degenerative arthritis bilaterally. PARAVERTEBRAL AND INCLUDED EXTRASPINAL SOFT TISSUES: -Aorta is normal in caliber. -There are tiny cysts in the left kidney. -No additional abnormalities. IMPRESSION: 1. Significant spondylosis relatively confined to L4-5 and L5-S1 as described above, superimposed upon a congenitally narrow central canal. Severe central canal stenosis at L4-5. There is likely impingement of the bilateral traversing L5 nerve roots at this level. 2. Severe left lateral recess stenosis at L5-S1 with impingement of the left traversing S1 nerve roots secondary to a left paracentral and lateral disc extrusion. 3. Severe left neural foraminal impingement at L5-S1, with likely impingement of the exiting left L5 nerve root. 4. Severe edematous endplate changes at L5-S1 extending into the right L5 pedicle. 5. See above for details. XR LUMBAR SPINE 06/09/24 CLINICAL INFORMATION: Low back pain M54.5. COMPARISON: XR Lumbar spine 06/11/2022 TECHNIQUE: Three views of the lumbosacral spine. FINDINGS: There is mild levoscoliotic curvature centered at L3-L4. The vertebral body heights are fairly well-preserved. There is grade 1 anterolisthesis of L4 and L5. Moderate facet arthropathy in the lower lumbar spine. Mild degenerative disc disease. The sacroiliac joints are intact. IMPRESSION: 1. Grade 1 anterolisthesis of L4 on L5. 2. Moderate facet arthropathy in the lower lumbar spine. 3. Mild degenerative disc disease. Assessment & Plan Assessment & Plan (1) Low back pain: Comment: 06/12/2022Grade 1 anterolisthesis L4 over L5. No acute fracture or dislocation. 2. Moderate bilateral L4-L5 facet joint arthropathy. Code(s): M54.5 - Low back pain Category: Medical Qualifiers: Chronicity: acute Back pain laterality: midline Sciatica presence: without sciatica Qualified Code(s): M54.5 - Low back pain (2) Lumbar radiculopathy: Comment: October 2024 MRI Significant spondylosis relatively confined to L4-5 and L5-S1 as described above, superimposed upon a congenitally narrow central canal. Severe central canal stenosis at L4-5. There is likely impingement of the bilateral traversing L5 nerve roots at this level. 2. Severe left lateral recess stenosis at L5-S1 with impingement of the left traversing S1 nerve roots secondary to a left paracentral and lateral disc extrusion. 3. Severe left neural foraminal impingement at L5-S1, with likely impingement of the exiting left L5 nerve root. 4. Severe edematous endplate changes at L5-S1 extending into the right L5 pedicle. 5. See above for details. Code(s): M54.16 - Radiculopathy, lumbar region Category: Medical (3) Lumbar spinal stenosis: Code(s): M48.061 - Spinal stenosis, lumbar region without neurogenic claudication Category: Medical Plan Lumbar xray and MRI results were discussed with patient today. Given severe spinal stenosis at L4-L5 and L5-S1 with worsening back and leg symptoms, patient is recommended to proceed with [facility] Neurosurgery evaluation which is already planned for 11/30/24. Patient was instructed to acquire the MRI disk and proceed with an earlier appointment with the neurosurgeon if possible. Should she notice any new or worsening symptoms, including significant weakness, worsening urinary incontinence, or unbearable pain, she was advised to seek emergency care promptly or call 911. I have informed patient that I do not offer opioid prescribing. Script provided for Medrol Dose Dmitry for symptomatic relief. Side effects and precautions were discussed with patient. All questions and concerns have been answered and patient agreed with the plan. Follow up as needed. Patient was informed and verbally consented to the use of an ambient scribe for clinic note documentation during this visit. Medications: New methylprednisolone (Medrol (Dmitry)) PO PER PKG DIR 21 ea 0RF pain M48.061 - Spinal stenosis, lumbar region without neurogenic claudication, M54.16 - Radiculopathy, lumbar region, M54.5 - Low back pain Patient Instructions: During this visit, I discussed the findings of severe spinal stenosis at L4-L5 and L5-S1 with the patient, explaining possible surgical intervention as the most appropriate course of action due to the severity of her condition and her symptoms. We reviewed alternative management strategies, including the potential benefit and risk of steroids. I emphasized the need for urgent neurosurgical consultation, particularly given her reports of urinary incontinence and severe back and leg pain, and instructed her to visit Radiology to obtain an MRI disk for her follow-up with [facility] Neurosurgery. Return precautions included a directive to visit the ER if symptoms such as neurological deficits worsened. Coding Level of Care Code New Pt Level 4 (50342) Diagnoses Acute midline low back pain without sciatica M54.5 Chronicity: acute Back pain laterality: midline Sciatica presence: without sciatica Lumbar radiculopathy M54.16 Lumbar spinal stenosis M48.061
[2024-11-20 09:17] VITALS: BP 126/61; PULSE 80; O2SAT 97; BMI 22.5
--- OUTSIDE RECORDS SUMMARY | 2024-11-20 09:17 | XMS_ITS | Clinical Summary ---
Author Organization [facility] ity Address [address] [place] [address] Care Team Providers Care Eeg Technician Name Role Phone Bhavya Mariscal MD Primary Care Provider [phone] Social History Tobacco Use Types Packs/Day Years [...] age to complete this topic Care Teams Eeg Technician Relationship Specialty Start Date End Date Bhavya Mariscal MD [address] [place] [address] [address] [facility] [place] [address] PCP - General Internal Medicine 01/23/22
== END 2024-11-20 09:54 | disposition home or self-care (01) ==
LOC: HO.PMC 09:10
PROVIDERS: PCP Internal Medicine; Referring Provider Internal Medicine; Visit Provider Nurse Practitioner Family
DX: M54.50 Low back pain, unspecified (principal); M54.16 Radiculopathy, lumbar region; M48.061 Spinal stenosis, lumbar region without neurogenic claudication
CPT/HCPCS: 99204

== ENCOUNTER → 2024-11-20 09:08 | Outpatient (BNVA) | payer OTHER, SELFPAY | PROVIDERS: PCP Internal Medicine; Referring Provider Internal Medicine; Visit Provider Nurse Practitioner Family | DX: M54.50 Low back pain, unspecified (principal); M54.16 Radiculopathy, lumbar region; M48.061 Spinal stenosis, lumbar region without neurogenic claudication | CPT/HCPCS: 99202 ==

== ENCOUNTER 2025-01-07 12:56 | Outpatient (AMB) | payer OTHER, SELFPAY ==
--- OUTSIDE RECORDS SUMMARY | 2023-12-03 06:30 | XMS_ITS | Continuity of Care Document ---
Author Organization [facility] Address [address] [place] [address] [address] [place] [address] Phone Care Team Providers Care Wetland Scientist Name Role Phone Abhijit CASANOVA, HAYLIE, JAIMIE, Isiah Unavailable U navailable Procedures Procedure Date Offic Cons New/estab Mod-hi 60- CT & [place] Duplex Scan-extrem Veins; Comp- CT & [place] Advance Directives Directive Yes / No Effective Date File Name No Information Encounters Encounter Description Practice Location Reason(s) For Visit Diagnoses Date Provider Providers Copied on Encounter Offic Cons New/estab Mod-hi 60- [place] & [place] [facility], [address] [place] [address] [address], [id number], [place] tel:[phone] CVR - [place] - [place] Chronic venous hypertension (idiopathic) with other complications of bilateral lower extremityPain in right legPain in left legRestless legs syndromeCramp and spasmLocalized edema 4 Abhijit CASANOVA, HAYLIE, JAIMIE Joyce. [address] [facility], [address], [place], [place], [id number] , [place]. tel:[phone] Referring Provider: Bhavya Mariscal MD, [address] [place] [address] [address] [facility], [place], [address]. tel:[phone] [facility], [address] [place] [address] [address], [id number], [place] [phone] CVR - [place] - [place] Chronic venous hypertension (idiopathic) with other complications of bilateral lower extremity 4 Abhijit CASANOVA, RVT, RPVI Isiah. [address] [facility], [address], [place], [place], [id number] , [place]. tel: [phone] Referring Provider: Bhavya Mariscal MD, [address] [place] [address] [address] [facility], [place], [address]. [phone] Family History Family Member Type Diagnosis Age At Onset No Information Payers Payer name Insurance type Covered democrat ID Bridget singh(s) [facility] [id number] Social History Type Description Quantity Date Captured Comments Alcohol Use Details Unknown Caffeine Use Details Unknown Tobacco Use Status Smoking Status Smoker, current stat unknown Non-Smoking Tobacco Use Details : No Details Available : No Details Available Sex Female Vital Signs Date / Time: Height Weight BMI Pulse Rate Blood Pressure Temperature Respiratory Rate Body Surface Area Head Circumference Head Circ. Percentile Wt./Jeyson. Percentile BMI percentile Pulse Ox Inhaled Ox 63.960 kg (141.00 lbs) 22.8 2 kg/m eter (2) 122/84 mm[Hg] Chief Complaint And Reason For Visit No Information Reason For Referral Reason For Referral No Information Plan Of Treatment Date Type Action Status Goal Diet education completed Goal Tobacco cessation counseling completed Referral Ordered: Weight management: Referral to physician timeframe: 3 Months (related to Body mass index (BMI) 22.0-22.9, adult) ordered History Of Present Illness Encounter Date Complaint History Of Prese nt Illness No Information Functional Status Date Functional Assessmen t No Information Instructions Date Instruction Additional Infor mation Diet education Related to Body mass index (BMI) 22.0-22.9, adult Giving Encouragement to exercise Related to Body mass index (BMI) 22.0-22.9, adult Lifestyle education Related to B daxa mass index (BMI) 22.0-22.9, adult Compression stocking usage as conservative measure Related to Chronic venous hypertension (idiopathic) with other complications of bilateral lower extremity Patient education booklet given Related to Chronic venous hypertension (idiopathic) with other complications of bilateral lower extremity Assessments Type Assessment Date assessment Restless legs syndrome assessment Chronic venous hyper tension (idiopathic) with other complications of bilateral lower extremity assessment Pain in right leg assessment Localized edema assessment Cramp and spasm assessment Pain in left leg Patient Care Teams Name Effective Dates (start - stop) Status Members No Information
--- NOTE | 2025-01-07 12:59 | MHC.PC.OV ---
Vital Signs 01/07/25 13:00 Height 5 ft 5 in Weight 133 lb 6 oz BMI 22.2 BP 106/66 Blood Pressure Location Lt brachial Position Sitting Pulse 79 Pulse Source Pulse Oximeter Temp 97.1 F Temp Source Temporal Artery Scan Pulse Oximetry (%) 97 Oxygen Delivery Method Room Air Intake Visit Reasons: spine injury Allergies ibuprofen Adverse Reaction (Intermediate, Verified 01/07/25 12:59) stomach pain acetaminophen (Tylenol) Adverse Reaction (Mild, Verified 01/07/25 12:59) Abdominal Pain Medication List - Last Reconciled 01/07/25 by Bhavya Mariscal MD [HEATING PAD As directed] tramadol 50 mg PO DAILY Tobacco use date assessed: 01/07/25 Dental Screening Dental Screen Date: 08/25/24 Did you have a dental visit in the last 12 months?: Yes Did you have a dental problem in the last 6 months where you did not have access to dental care?: No Was dental information given to patient?: Patient has dentist HPI spine injury HPI Details 54-year-old female smoker with a history of nephrolithiasis impaired glucose tolerance hypercholesterolemia generalized anxiety disorder peripheral vascular disease with varicose veins lumbar spinal stenosis coming in for follow-up last seen in 10/26/2024 patient was sent to pain management for lumbar radiculopathy MRI showing grade 1 anterolisthesis L4-L5 moderate facet arthropathy with mild degenerative disc problem. Patient was advised to see neurosurgeon for evaluation which was supposed to have planned 11/30/2024 patient was given prednisone at that time. Patient was advised surgery. stopped smoking last week 12/2024 [facility] Medical History (Updated 01/07/25 @ 13:28 by Bhavya Mariscal MD) Anxiety and depression Chronic leg pain Amenorrhea Fall Ankle pain, right Cervical muscle strain Wrist pain, right Colon cancer screening Back pain Acquired deformity of pinna, right ear Hypercholesterolemia Peripheral vascular disease Pap smear vag w ASC-[facility] Vitamin D deficiency Hepatitis C virus infection cured after antiviral drug therapy Impaired fasting glucose Renal calculus Tobacco abuse Surgical History Varicose veins of both lower extremities H/O tubal ligation History of hemorrhoidectomy Family History Father No problems noted. Mother No problems noted. Son No problems noted. Son No problems noted. Daughter No problems noted. Daughter No problems noted. Daughter No problems noted. Maternal Grandmother Breast cancer Social History Housing: Apartment Alcohol intake: never Patient Tobacco Use Status: Current everyday Tobacco user Tobacco use type: Cigarette Cigarettes Per Day: 3 Years Smoked: stopped 02/2023 smoking 4 cigarettes a day does marijuana Packs per year/per ci.00 e-Cigarette/Vaping Use: Never Used Second Hand Smoke Exposure: No Current occupational status: disabled Cognitive needs: No Hearing needs: No Vision needs: No Questionnaire PHQ-9 Over the last 2 weeks, how often have you been bothered by any of the following problems? 1. Little interest or pleasure in doing things: nearly every day 2. Feeling down, depressed, or hopeless: nearly every day 3. Trouble falling or staying asleep, or sleeping too much: nearly every day 4. Feeling tired or having little energy: nearly every day 5. Poor appetite or overeating: several days 6. Feeling bad about yourself - or that you are a failure or have let yourself or your family down: several days 7. Trouble concentrating on things, such as reading the newspaper or watching television: several days 8. Moving or speaking so slowly that other people could have noticed. Or the opposite - being so fidgety or restless that you have been moving around a lot more than usual: several days 9. Thoughts that you would be better off or of hurting yourself in some way: not at all Total score: 16 Source: Developed by Drs. Isiah Stanley, Kari Sprague, Troy Kendrick and colleagues, with an educational maxime from [employer]. Thrive Questionnaire Date Thrive assessed: 10/26/24 I am a: Patient What is your living situation today?: I have a steady place to live Within the past 12 months, did the food you bought not last and you didn't have the money to get more?: I choose not to answer this question Within the past 12 months, did you worry whether your food would run out before you got money to buy more?: I choose not to answer this question Do you have trouble paying for medicines?: I choose not to answer this question Do you have trouble getting transportation to medical appointments?: I choose not to answer this question Do you have trouble paying your heating and electricity bill?: No Do you have trouble taking care of your child, family member or friend?: No Do you have trouble with day-to-day activities such as bathing, preparing meals, shopping, managing finances, etc.?: Yes Are you currently unemployed and looking for a job?: No Are you interested in more education?: No Please select the resources that you would like help with: None Currently or been in a relationship where the following occur: No concerns reported THRIVE Score: 0 AUDIT C Alcohol Use Questionnaire (AUDIT-C) 1. How often do you have a drink containing alcohol?: Never 3. How often do you have six or more drinks on one occasion?: Never Total Score: 0 THERESA-7 AMB Questionnaire THERESA-7 Date THERESA - 7 assessed: 08/25/24 Feeling nervous, anxious, or on edge: 0 = Not at all Not being able to stop or control worryin = Not at all Worrying too much about different things: 0 = Not at all Trouble relaxin = Not at all Being so restless that it is hard to sit still: 0 = Not at all Becoming easily annoyed or irritable: 0 = Not at all Feeling afraid as if something awful might happen: 0 = Not at all Total THERESA-7 score (0-4 normal; 5-9 mild; 10-14 moderate; 15-21 severe): 0 Source: Developed by Drs. Isiah Stanley, Kari Sprague, Troy Kendrick and colleagues, with an educational maxime from [employer]. Physical exam (Primary Care) Vital Signs: Last Vital Signs Temp 97.1 F 01/07/25 13:00 Pulse 79 01/07/25 13:00 BP 106/66 01/07/25 13:00 Pulse Ox 97 01/07/25 13:00 Oxygen Delivery Method Room Air 01/07/25 13:00 BMI result Body Mass Index 22.2 Tobacco/Smoking Status: Tobacco use Status Tobacco use date assessed 01/07/25 01/07/25 13:04 Patient Tobacco Use Status Current everyday Tobacco 01/07/25 13:04 Tobacco use type Cigarette 01/07/25 13:04 e-Cigarette/Vaping Use Never Used 01/07/25 13:04 PHQ-9: PHQ-9 Score PHQ-9: Total score 16 01/07/25 13:25 Thrive Assessment: Date of Thrive Assessment Date Thrive assessed 10/26/24 01/07/25 13:04 Currently or been in a relationship where the following occur: No concerns reported Const General: alert; No acute distress Eyes Conjunctivae: conjunctivae normal Resp Auscultation: clear to auscultation bilaterally Cardio Rate: regular rate Rhythm: regular rhythm GI Inspection: Yes normal to inspection Extrem General: Yes normal to inspection and No edema Coding Level of Care Code Est Pt Level 4 (53768) Complex EM visit Add On G2211 Diagnoses Lumbar spinal stenosis M48.061 Impaired fasting glucose R73.01 Hypercholesterolemia E78.00 Generalized anxiety disorder F41.1 Tobacco abuse Z72.0 Assessment & Plan Assessment & Plan (1) Lumbar spinal stenosis: Code(s): M48.061 - Spinal stenosis, lumbar region without neurogenic claudication Category: Medical Plan: Patient has been sent to pain management who has recommended for the patient to be seen by the neurosurgeon in [facility] (2) Impaired fasting glucose: Code(s): R73.01 - Impaired fasting glucose Category: Medical Plan: Decrease the amount of carbohydrate intake, pasta, bread, rice and potatoes are all sugar and that is aside from all the sweet stuff, remember that fruits are good but they are Sweet also. (3) Hypercholesterolemia: Code(s): E78.00 - Pure hypercholesterolemia, unspecified Category: Medical Plan: Avoid fried foods, chicken skin, eggs, butter margarine, pastries and meat. Be it pork or beef they have a lot of cholesterol (4) Generalized anxiety disorder: Comment: [facility] Therapist Elvia Code(s): F41.1 - Generalized anxiety disorder Category: Medical Plan: Continue with counseling and therapy (5) Tobacco abuse: Comment: stopped smoking 12/2024 Code(s): Z72.0 - Tobacco use Category: Medical Plan: finally stopped Medications: New tramadol 50 mg PO DAILY 30 tabs 0RF M48.061 - Spinal stenosis, lumbar region without neurogenic claudication
[2025-01-07 13:00] VITALS: BP 106/66; PULSE 79; TEMP 36.2; O2SAT 97; BMI 22.2
--- OUTSIDE RECORDS SUMMARY | 2025-01-07 13:25 | XMS_ITS | Clinical Summary ---
Author Organization [facility] ity Address [address] [place] [address] Care Team Providers Care Machine Lay Out Worker Name Role Phone Bhavya Mariscal MD Primary Care Provider [phone] Social History Tobacco Use Types Packs/Day Years [...] - 2023-2 5 season) 2024 Influenza Vaccine (#1) 2025 HIB Vaccines Aged Out No longer [...] to complete this topic Care Teams Machine Lay Out Worker Relationship Specialty Start Date End Date Bhavya Mariscal MD [address] [place] [address] Dr [address] [facility] [place] [address] PCP - General Internal Medicine 01/23/22
== END 2025-01-07 14:08 | disposition home or self-care (01) ==
LOC: HO.HMCH 12:57
PROVIDERS: PCP Internal Medicine; Visit Provider Internal Medicine
DX: M48.061 Spinal stenosis, lumbar region without neurogenic claudication (principal); R73.01 Impaired fasting glucose; E78.00 Pure hypercholesterolemia, unspecified; F41.1 Generalized anxiety disorder; Z72.0 Tobacco use

== ENCOUNTER → 2025-01-07 12:56 | Outpatient (BNVA) | payer OTHER, SELFPAY | PROVIDERS: PCP Internal Medicine; Visit Provider Internal Medicine | DX: M48.061 Spinal stenosis, lumbar region without neurogenic claudication (principal); R73.01 Impaired fasting glucose; E78.00 Pure hypercholesterolemia, unspecified; F41.1 Generalized anxiety disorder; Z72.0 Tobacco use; Z13.31 Encounter for screening for depression | CPT/HCPCS: 99212 ==

== ENCOUNTER 2025-02-26 07:55 | Outpatient (AMB) | payer OTHER, SELFPAY ==
--- OUTSIDE RECORDS SUMMARY | 2025-02-26 07:58 | XMS_ITS | Clinical Summary ---
Author Organization [facility] ity Address [address] [place] [address] Care Team Providers Care Pump Service Supervisor Name Role Phone Bhavya Mariscal MD Primary Care Provider [phone] Social History Tobacco Use Types Packs/Day Years [...] 2020 Zoster Vaccines (1 of 2) 2020 Depression Screening 06/24/2024 COVID-19 Vaccine (1 - 2023-2 5 season) 2025 Influenza Vaccine (#1) 2025 HIB Vaccines Aged [...] age to complete this topic Care Teams Pump Service Supervisor Relationship Specialty Start Date End Date Bhavya Mariscal MD [address] [place] [address] [address] [facility] [place] [address] PCP - General Internal Medicine 01/23/22
[2025-02-26 08:00] VITALS: BP 108/62; PULSE 70; O2SAT 98; BMI 22.0
--- NOTE | 2025-02-26 08:00 | A.OFFPC_ITS ---
Vital Signs 02/26/25 08:00 Height 5 ft 5 in Weight 132 lb BMI 22.0 BP 108/62 Blood Pressure Location Lt brachial Position Sitting Pulse 70 Pulse Source Pulse Oximeter Pulse Oximetry (%) 98 Oxygen Delivery Method Room Air Intake Visit Reasons: f/u broken back Allergies ibuprofen Adverse Reaction (Intermediate, Verified 02/26/25 08:21) stomach pain acetaminophen (Tylenol) Adverse Reaction (Mild, Verified 02/26/25 08:21) Abdominal Pain gabapentin Adverse Reaction (Verified 02/26/25 08:21) restless legs Medication List - Last Reconciled 02/26/25 by Guerda De La Vega PA-C [HEATING PAD As directed] tramadol 50 mg PO TID 15 days Tobacco use date assessed: 01/07/25 Dental Screening Dental Screen Date: 08/25/24 HPI f/u broken back HPI Details 54-year-old female with past medical his tory of hypercholesterolemia, impaired glucose tolerance, tobacco abuse, generalized anxiety disorder, peripheral vascular disease last seen 12/[address] Mariscal coming in for follow up. In review of the notes, patient was seen by [facility] 11/2023 advised surgery for L4-L5 and L5-S1 stenosis. Patient was advised she needs to discontinue smoking prior to surgery Presenting with severe spinal stenosis and associated pain. She experienced an incident in December last year, leading to significant pain and difficulty walking, with an MRI revealing spinal issues. The MRI showed severe spinal stenosis, specifically L4-L5 degenerative severe central stenosis and L5-S1 mild central stenosis. The patient reports severe pain affecting her mobility and daily activities, including bowel movements. She has allergies to multiple medications, including tramadol and gabapentin, complicating pain management. Awaiting a 9-hour surgery, she faces logistical challenges, including smoking cessation requirements. [facility] Medical History (Updated 01/07/25 @ 13:28 by Bhavya Mariscal MD) Anxiety and depression Chronic leg pain Amenorrhea Fall Ankle pain, right Cervical muscle strain Wrist pain, right Colon cancer screening Back pain Acquired deformity of pinna, right ear Hypercholesterolemia Peripheral vascular disease Pap smear vag w ASC-US Vitamin D deficiency Hepatitis C virus infection cured after antiviral drug therapy Impaired fasting glucose Renal calculus Tobacco abuse Surgical History Varicose veins of both lower extremities H/O tubal ligation History of hemorrhoidectomy Family History (Reviewed 01/07/25 @ 13:03 by Inessa Chapman [facility]) Father No problems noted. Mother No problems noted. Son No problems noted. Son No problems noted. Daughter No problems noted. Daughter No problems noted. Daughter No problems noted. Maternal Grandmother Breast cancer Social History (Reviewed 01/07/25 @ 13:03 by Inessa Chapman [facility]) Housing: Apartment Alcohol intake: never Patient Tobacco Use Status: Current everyday Tobacco user Tobacco use type: Cigarette Cigarettes Per Day: 3 Years Smoked: stopped 02/2023 smoking 4 cigarettes a day does marijuana e-Cigarette/Vaping Use: Never Used Second Hand Smoke Exposure: No Current occupational status: disabled Cognitive needs: No Hearing needs: No Vision needs: No Questionnaire PHQ-9 Over the last 2 weeks, how often have you been bothered by any of the following problems? 1. Little interest or pleasure in doing things: nearly every day 2. Feeling down, depressed, or hopeless: nearly every day 3. Trouble falling or staying asleep, or sleeping too much: nearly every day 4. Feeling tired or having little energy: nearly every day 5. Poor appetite or overeating: several days 6. Feeling bad about yourself - or that you are a failure or have let yourself or your family down: several days 7. Trouble concentrating on things, such as reading the newspaper or watching television: several days 8. Moving or speaking so slowly that other people could have noticed. Or the opposite - being so fidgety or restless that you have been moving around a lot more than usual: several days 9. Thoughts that you would be better off or of hurting yourself in some way: not at all Total score: 16 Depression Screening Interpretation: Positive Depression Screening Done: Yes Source: Developed by Drs. Isiah Stanley, Kari Sprague, Troy Kendrick and colleagues, with an educational maxime from [employer]. Thrive Questionnaire Date Thrive assessed: 10/26/24 I am a: Patient What is your living situation today?: I have a steady place to live Within the past 12 months, did the food you bought not last and you didn't have the money to get more?: I choose not to answer this question Within the past 12 months, did you worry whether your food would run out before you got money to buy more?: I choose not to answer this question Do you have trouble paying for medicines?: I choose not to answer this question Do you have trouble getting transportation to medical appointments?: I choose not to answer this question Do you have trouble paying your heating and electricity bill?: No Do you have trouble taking care of your child, family member or friend?: No Do you have trouble with day-to-day activities such as bathing, preparing meals, shopping, managing finances, etc.?: Yes Are you currently unemployed and looking for a job?: No Are you interested in more education?: No Please select the resources that you would like help with: None Currently or been in a relationship where the following occur: No concerns reported THRIVE Score: 0 AUDIT C Alcohol Use Questionnaire (AUDIT-C) 1. How often do you have a drink containing alcohol?: Never 3. How often do you have six or more drinks on one occasion?: Never Total Score: 0 THERESA-7 AMB Questionnaire THERESA-7 Date THERESA - 7 assessed: 08/25/24 Source: Developed by Drs. Isiah Stanley, Kari Sprague, Troy Kendrick and colleagues, with an educational maxime from [employer]. Review of Systems Const Denies body aches, Denies chills and Denies fever(s) Card Denies chest pain and Denies syncope GI Details: No bowel incontinence Details: No bladder incontinence Musc Reports as per HPI Neuro Denies syncope Physical exam (Primary Care) Vital Signs: Oxygen Delivery Method Room Air 02/26/25 08:00 Tobacco/Smoking Status: Tobacco use Status Tobacco use date assessed 01/07/25 01/07/25 13:04 Patient Tobacco Use Status Current everyday Tobacco 01/07/25 13:04 Tobacco use type Cigarette 01/07/25 13:04 e-Cigarette/Vaping Use Never Used 01/07/25 13:04 Depression Screening Interpretation: Positive Thrive Assessment: Date of Thrive Assessment Date Thrive assessed 10/26/24 01/07/25 13:04 Currently or been in a relationship where the following occur: No concerns reported Const General: cooperative, healthy appearing, comfortable and no acute distress Orientation/consciousness: patient oriented x3 HENMT Head: Yes normocephalic Ears: hearing grossly normal bilaterally General nose exam: Normal external nose present Eyes General: appearance normal, both eyes and all related structures Conjunctivae: conjunctivae normal Neck Neck: Yes full ROM and Yes no lymphadenopathy Resp Effort & Inspection: normal respiratory effort Cardio Rate: regular rate Neuro General: patient oriented x3 Psych Affect: normal affect Attitude: cooperative Insight: Good insight present (Psych) Judgement: Good judgement present (Psych) Coding Level of Care Code Est Pt Level 3 (78840) Diagnoses Acute midline low back pain without sciatica M54.5 Chronicity: acute Back pain laterality: midline Sciatica presence: without sciatica Assessment & Plan Assessment & Plan (1) Low back pain: Comment: 06/12/2022Grade 1 anterolisthesis L4 over L5. No acute fracture or dislocation. 2. Moderate bilateral L4-L5 facet joint arthropathy. Code(s): M54.5 - Low back pain Category: Medical Qualifiers: Chronicity: acute Back pain laterality: midline Sciatica presence: without sciatica Qualified Code(s): M54.5 - Low back pain Plan: The patient is experiencing severe spinal stenosis with significant pain impacting her mobility and daily activities. She is awaiting a 9-hour surgical procedure but faces challenges due to medication allergies and smoking cessation requirements. Pain management is complicated by allergies to NSAIDs and gabapentin, and she is not ready for surgery due to logistical issues. Discussed with patient oxycodone is not appropriate and I did discuss this with her PCP Dr. Mariscal as well. I offerred her Meloxicam, Celebrex, Lyrica and Tramadol which were all declined. I did also offer to send her back to pain management which she declined as well. Patient states she only wants oxycodone and if this cannot be provided then she is wasting her time. I once again discussed it is not appropriate indefinite treatment given her surgery is not yet scheduled and it also makes postoperative pain more difficult to manage. She will follow up as needed for this concern Plan This note was constructed using voice recognition software. While every effort has been made to ensure accuracy and toll bridge attendant, still areas may have been included sometimes these areas may affect the content or meeting of the given symptoms. Total time spent caring for the patient today was 20 minutes. This includes time spent before the visit reviewing the chart, time spent during the visit, and time spent after the visit and documentation. Patient was informed and verbally consented to the use of an ambient scribe for clinic note documentation during this visit.
== END 2025-02-26 08:29 | disposition home or self-care (01) ==
LOC: HO.HMCH 07:56
PROVIDERS: PCP Internal Medicine
DX: M54.50 Low back pain, unspecified (principal)

== ENCOUNTER → 2025-02-26 07:55 | Outpatient (BNVA) | payer OTHER, SELFPAY | PROVIDERS: PCP Internal Medicine | DX: F41.1 Generalized anxiety disorder (principal); R73.01 Impaired fasting glucose; E78.00 Pure hypercholesterolemia, unspecified; I73.9 Peripheral vascular disease, unspecified; M54.50 Low back pain, unspecified | CPT/HCPCS: 99212 ==

== ENCOUNTER 2025-04-13 08:50 | Outpatient (AMB) | payer OTHER, SELFPAY ==
[2025-04-13 08:54] VITALS: BP 108/62; PULSE 95; TEMP 36.2; O2SAT 95; BMI 22.5
--- NOTE | 2025-04-13 08:54 | A.OFFPC_ITS ---
Vital Signs 04/13/25 08:54 Height 5 ft 5 in Weight 135 lb 4 oz BMI 22.5 BP 108/62 Blood Pressure Location Lt brachial Position Sitting Pulse 95 Pulse Source Pulse Oximeter Temp 97.1 F Temp Source Temporal Artery Scan Pulse Oximetry (%) 95 Oxygen Delivery Method Room Air Intake Visit Reasons: Pain in her back Allergies ibuprofen Adverse Reaction (Intermediate, Verified 04/13/25 08:56) stomach pain acetaminophen (Tylenol) Adverse Reaction (Mild, Verified 04/13/25 08:56) Abdominal Pain gabapentin Adverse Reaction (Verified 04/13/25 08:56) restless legs Tobacco use date assessed: 04/13/25 Dental Screening Dental Screen Date: 04/13/25 Did you have a dental visit in the last 12 months?: Yes Did you have a dental problem in the last 6 months where you did not have access to dental care?: No Was dental information given to patient?: Patient has dentist [facility] Medical History (Updated 04/13/25 @ 09:25 by Bhavya Mariscal MD) Low back pain radiating to left leg Low back pain Low back pain Low back pain Anxiety and depression Chronic leg pain Amenorrhea Fall Ankle pain, right Cervical muscle strain Wrist pain, right Colon cancer screening Back pain Acquired deformity of pinna, right ear Hypercholesterolemia Peripheral vascular disease Pap smear vag w ASC-US Vitamin D deficiency Hepatitis C virus infection cured after antiviral drug therapy Impaired fasting glucose Renal calculus Tobacco abuse Surgical History Varicose veins of both lower extremities H/O tubal ligation History of hemorrhoidectomy Family History Father No problems noted. Mother No problems noted. Son No problems noted. Son No problems noted. Daughter No problems noted. Daughter No problems noted. Daughter No problems noted. Maternal Grandmother Breast cancer Social History Housing: Apartment Alcohol intake: never Patient Tobacco Use Status: Current everyday Tobacco user Tobacco use type: Cigarette Cigarettes Per Day: 3 Years Smoked: stopped 02/2023 smoking 4 cigarettes a day does marijuana e-Cigarette/Vaping Use: Never Used Second Hand Smoke Exposure: No Current occupational status: disabled Cognitive needs: No Hearing needs: No Vision needs: No Questionnaire PHQ-9 Over the last 2 weeks, how often have you been bothered by any of the following problems? 1. Little interest or pleasure in doing things: nearly every day 2. Feeling down, depressed, or hopeless: nearly every day 3. Trouble falling or staying asleep, or sleeping too much: nearly every day 4. Feeling tired or having little energy: nearly every day 5. Poor appetite or overeating: several days 6. Feeling bad about yourself - or that you are a failure or have let yourself or your family down: several days 7. Trouble concentrating on things, such as reading the newspaper or watching television: several days 8. Moving or speaking so slowly that other people could have noticed. Or the opposite - being so fidgety or restless that you have been moving around a lot more than usual: several days 9. Thoughts that you would be better off or of hurting yourself in some way: not at all Total score: 16 Depression Screening Interpretation: Positive Depression Screening Done: Yes Source: Developed by Drs. Isiah Stanley, Kari Sprague, Troy Kendrick and colleagues, with an educational maxime from [employer]. Thrive Questionnaire Date Thrive assessed: 10/26/24 I am a: Patient What is your living situation today?: I have a steady place to live Within the past 12 months, did the food you bought not last and you didn't have the money to get more?: I choose not to answer this question Within the past 12 months, did you worry whether your food would run out before you got money to buy more?: I choose not to answer this question Do you have trouble paying for medicines?: I choose not to answer this question Do you have trouble getting transportation to medical appointments?: I choose not to answer this question Do you have trouble paying your heating and electricity bill?: No Do you have trouble taking care of your child, family member or friend?: No Do you have trouble with day-to-day activities such as bathing, preparing meals, shopping, managing finances, etc.?: Yes Are you currently unemployed and looking for a job?: No Are you interested in more education?: No Please select the resources that you would like help with: None Currently or been in a relationship where the following occur: No concerns reported THRIVE Score: 0 AUDIT C Alcohol Use Questionnaire (AUDIT-C) 1. How often do you have a drink containing alcohol?: Never 3. How often do you have six or more drinks on one occasion?: Never Total Score: 0 THERESA-7 AMB Questionnaire THERESA-7 Date THERESA - 7 assessed: 08/25/24 Feeling nervous, anxious, or on edge: 0 = Not at all Not being able to stop or control worryin = Not at all Worrying too much about different things: 0 = Not at all Trouble relaxin = Not at all Being so restless that it is hard to sit still: 0 = Not at all Becoming easily annoyed or irritable: 0 = Not at all Feeling afraid as if something awful might happen: 0 = Not at all Total THERESA-7 score (0-4 normal; 5-9 mild; 10-14 moderate; 15-21 severe): 0 Source: Developed by Drs. Isiah Stanley, Kari Sprague, Troy Kendrick and colleagues, with an educational maxime from [employer]. Physical exam (Primary Care) Vital Signs: Last Vital Signs Temp 97.1 F 04/13/25 08:54 Pulse 95 04/13/25 08:54 BP 108/62 04/13/25 08:54 Pulse Ox 95 04/13/25 08:54 Oxygen Delivery Method Room Air 04/13/25 08:54 BMI result Body Mass Index 22.5 Tobacco/Smoking Status: Tobacco use Status Tobacco use date assessed 04/13/25 04/13/25 08:57 Patient Tobacco Use Status Current everyday Tobacco 04/13/25 08:57 Tobacco use type Cigarette 04/13/25 08:57 e-Cigarette/Vaping Use Never Used 04/13/25 08:57 PHQ-9: PHQ-9 Score PHQ-9: Total score 16 04/13/25 09:25 Depression Screening Interpretation: Positive Thrive Assessment: Date of Thrive Assessment Date Thrive assessed 10/26/24 04/13/25 08:57 Currently or been in a relationship where the following occur: No concerns reported Const General: alert; No acute distress Eyes Conjunctivae: conjunctivae normal Resp Auscultation: clear to auscultation bilaterally Cardio Rate: regular rate Rhythm: regular rhythm GI Inspection: Yes normal to inspection Extrem General: Yes normal to inspection and No edema Coding Level of Care Code Est Pt Level 4 (61069) Complex EM visit Add On G2211 Diagnoses Tobacco abuse Z72.0 Lumbar radiculopathy M54.16 Peripheral vascular disease I73.9 Assessment & Plan Assessment & Plan (1) Tobacco abuse: Comment: stopped smoking 12/2024 Code(s): Z72.0 - Tobacco use Category: Medical Plan: PAtient is still smoking (2) Lumbar radiculopathy: Comment: October 2024 MRI Significant spondylosis relatively confined to L4-5 and L5-S1 as described above, superimposed upon a congenitally narrow central canal. Severe central canal stenosis at L4-5. There is likely impingement of the bilateral traversing L5 nerve roots at this level. 2. Severe left lateral recess stenosis at L5-S1 with impingement of the left traversing S1 nerve roots secondary to a left paracentral and lateral disc extrusion. 3. Severe left neural foraminal impingement at L5-S1, with likely impingement of the exiting left L5 nerve root. 4. Severe edematous endplate changes at L5-S1 extending into the right L5 pedicle. 5. See above for details. Code(s): M54.16 - Radiculopathy, lumbar region Category: Medical Plan: Notes from November 2024 from the neurosurgeon received and planned surgery when the patient is ready to stop smoking. (3) Peripheral vascular disease: Comment: had vein ligation 2015 Code(s): I73.9 - Peripheral vascular disease, unspecified Category: Medical Plan: When sitting down elevate the legs, exercise, and support stockings Plan History of Present Illness The patient is a 55-year-old female presenting with low back pain and a history of nephrolithiasis, impaired glucose tolerance, hypercholesterolemia, generalized anxiety disorder, and vascular disease. The patient has a history of nephrolithiasis and impaired glucose tolerance diagnosed in 2019, along with hypercholesterolemia. She also has generalized anxiety disorder and vascular disease. The patient reports chronic low back pain, with an MRI in 2021 revealing anterior spondylolisthesis and lumbar facet arthropathy. A more recent MRI in 2024 showed significant spondylosis at L4-5 and L5-S1, with severe central canal stenosis at L4-5 and severe left lateral recess stenosis at L5-S1, causing impingement of the bilateral traversing L5 nerve roots and left neural foraminal impingement at L5-S1. The patient was advised by a neurosurgeon to undergo a left L4-5 minimally invasive decompression and a left L5-S1 complete facetectomy and foraminotomy, with both levels augmented by a TLIF technique. She admits to smoking marijuana and cigars occasionally and plans to quit nicotine before considering surgery. Health Maintenance Social History - Substance use: Smokes marijuana and cigars occasionally, plans to quit nicotine before surgery. Review of Systems - Musculoskeletal: Reports chronic low back pain. Physical Exam Results - MRI 2021: Anterior spondylolisthesis and lumbar facet arthropathy. - MRI 2024: Significant spondylosis at L4-5 and L5-S1, severe central canal stenosis at L4-5, severe left lateral recess stenosis at L5-S1, impingement of bilateral traversing L5 nerve roots, and left neural foraminal impingement at L 5-S1. Plan Patient was informed and verbally consented to the use of an ambient scribe for clinic note documentation during this visit. 1. Low Back Pain With Anterior Spondylolisthesis The patient has been advised to undergo a left L4-5 minimally invasive decompression and a left L5-S1 complete facetectomy and foraminotomy, with both levels augmented by a TLIF technique. She is considering surgery and plans to quit nicotine before proceeding. 2. Severe Central Canal Stenosis At L4-5 The severe central canal stenosis at L4-5 is contributing to the patient's symptoms, and surgical intervention has been recommended. 3. Severe Left Lateral Recess Stenosis At L5-S1 The severe left lateral recess stenosis at L5-S1 is causing impingement of the nerve roots, and surgical intervention has been recommended. Discussion Notes During the visit, I discussed with the patient the need for surgical intervention due to her severe spinal stenosis and spondylolisthesis. We re viewed the recommended procedures, including a left L4-5 minimally invasive decompression and a left L5-S1 complete facetectomy and foraminotomy, with augmentation by a TLIF technique. I emphasized the importance of smoking cessation prior to surgery to reduce surgical risks and improve recovery outcomes. The patient was informed about the potential postoperative pain and the possibility of requiring inpatient rehabilitation. We also discussed the risks of infection and other complications associated with the surgery. The patient expressed her intention to quit smoking and is considering the surgical options. Patient Instructions - Quit smoking before surgery to reduce risks and improve recovery. - Consider the surgical options discussed and decide on proceeding with the recommended procedures. - Be aware of the potential for postoperative pain and the possibility of needing inpatient rehabilitation.
== END 2025-04-13 09:48 | disposition home or self-care (01) ==
LOC: HO.HMCH 08:51
PROVIDERS: PCP Internal Medicine; Visit Provider Internal Medicine
DX: Z72.0 Tobacco use (principal); M54.16 Radiculopathy, lumbar region; I73.9 Peripheral vascular disease, unspecified

== ENCOUNTER → 2025-04-13 08:50 | Outpatient (BNVA) | payer OTHER, SELFPAY | PROVIDERS: PCP Internal Medicine; Visit Provider Internal Medicine | DX: M54.16 Radiculopathy, lumbar region (principal); I73.9 Peripheral vascular disease, unspecified; M43.16 Spondylolisthesis, lumbar region; F41.1 Generalized anxiety disorder; Z87.891 Personal history of nicotine dependence; Z87.442 Personal history of urinary calculi | CPT/HCPCS: 99212 ==

== ENCOUNTER 2025-06-21 15:30 | Outpatient (AMB) | payer OTHER, SELFPAY ==
--- NOTE | 2025-06-21 15:40 | A.OFFPC_ITS ---
Vital Signs 06/21/25 15:42 Height 5 ft 5 in Weight 136 lb 8 oz BMI 22.7 BP 120/62 Blood Pressure Location Lt brachial Position Sitting Pulse 82 Pulse Source Pulse Oximeter Temp 97.3 F Temp Source Temporal Artery Scan Pulse Oximetry (%) 98 Oxygen Delivery Method Room Air Intake Visit Reasons: Bronchitis? Intake Note: Patient is here to follow up on Bronchitis. Safety Net Maker Required: No Hair And Makeup Designer: Not Required per policy Accompanied by: Self / Same As Patient Allergies ibuprofen Adverse Reaction (Intermediate, Verified 06/21/25 15:42) stomach pain acetaminophen (Tylenol) Adverse Reaction (Mild, Verified 06/21/25 15:42) Abdominal Pain gabapentin Adverse Reaction (Verified 06/21/25 15:42) restless legs Medication List - Last Reconciled 06/21/25 by Rona Sorensen MD [HEATING PAD As directed] Tobacco use date assessed: 06/21/25 Dental Screening Dental Screen Date: 04/13/25 HPI HPI Comments History of Present Illness Details The patient is a 55 year old female presenting with a dry cough that started four days ago. The cough is associated with chest pain and swollen tonsils, which she notes are getting bigger. She reports having chills but denies any fever, vomiting, or headaches. Her sleep has been interrupted by coughing after about four hours, and she also experiences sweating. She tried using [place] lozenges, but they were not effective and seemed to increase her coughing. The patient has a known allergy to ibuprofen and Tylenol, stating that Tylenol causes nausea and vomiting. She also mentions a history of a back problem. [facility] Medical History (Updated 06/21/25 @ 16:12 by Rona Sorensen MD) Low back pain radiating to left leg Low back pain Low back pain Low back pain Anxiety and depression Chronic leg pain Amenorrhea Fall Ankle pain, right Cervical muscle strain Wrist pain, right Colon cancer screening Back pain Acquired deformity of pinna, right ear Hypercholesterolemia Peripheral vascular disease Pap smear vag w [facility] Vitamin D deficiency Hepatitis C virus infection cured after antiviral drug therapy Impaired fasting glucose Renal calculus Tobacco abuse Surgical History Varicose veins of both lower extremities H/O tubal ligation History of hemorrhoidectomy Family History Father No problems noted. Mother No problems noted. Son No problems noted. Son No problems noted. Daughter No problems noted. Daughter No problems noted. Daughter No problems noted. Maternal Grandmother Breast cancer Social History (Updated 06/21/25 @ 15:47 by MEREDITH Gallardo) Housing: Apartment Alcohol intake: never Patient Tobacco Use Status: Current everyday Tobacco user Tobacco use type: Cigarette Cigarette Packs Per Day: 0.25 Cigarettes Per Day: 2 Years Smoked: stopped 02/2023 smoking 4 cigarettes a day does marijuana e-Cigarette/Vaping Use: Never Used Second Hand Smoke Exposure: Yes Substance Use Type: Marijuana service: No Current occupational status: disabled Cognitive needs: No Hearing needs: No Vision needs: No Questionnaire Thrive Questionnaire Date Thrive assessed: 10/26/24 I am a: Patient What is your living situation today?: I have a steady place to live Within the past 12 months, did the food you bought not last and you didn't have the money to get more?: I choose not to answer this question Within the past 12 months, did you worry whether your food would run out before you got money to buy more?: I choose not to answer this question Do you have trouble paying for medicines?: I choose not to answer this question Do you have trouble getting transportation to medical appointments?: I choose not to answer this question Do you have trouble paying your heating and electricity bill?: No Do you have trouble taking care of your child, family member or friend?: No Do you have trouble with day-to-day activities such as bathing, preparing meals, shopping, managing finances, etc.?: Yes Are you currently unemployed and looking for a job?: No Are you interested in more education?: No Currently or been in a relationship where the following occur: No concerns reported THRIVE Score: 0 THERESA-7 AMB Questionnaire THERESA-7 Date THERESA - 7 assessed: 08/25/24 Source: Developed by Drs. Isiah Stanley, Kari Sprague, Troy Kendrick and colleagues, with an educational maxime from [employer] Review of Systems Const Details: As per HPI. Physical exam (Primary Care) Vital Signs: Last Vital Signs Temp 97.3 F 06/21/25 15:42 Pulse 82 06/21/25 15:42 BP 120/62 06/21/25 15:42 Pulse Ox 98 06/21/25 15:42 Oxygen Delivery Method Room Air 06/21/25 15:42 BMI result Body Mass Index 22.7 Tobacco/Smoking Status: Tobacco use Status Tobacco use date assessed 06/21/25 06/21/25 15:48 Patient Tobacco Use Status Current everyday Tobacco 06/21/25 15:48 Tobacco use type Cigarette 06/21/25 15:48 e-Cigarette/Vaping Use Never Used 06/21/25 15:48 Thrive Assessment: Date of Thrive Assessment Date Thrive assessed 10/26/24 06/21/25 15:48 Currently or been in a relationship where the following occur: No concerns reported Const Other: Pertinent findings are in BOLD GENERAL APPEARANCE NAD, activity normal for age, well developed/ well nourished, no cyanosis, pallor, or diaphoresis. EYES lids/conjunctiva normal. EARS/NOSE/THROAT Mucous membranes moist, nares normal, lips/teeth normal uvula midline without oral pharyngeal erythema, exudate or swelling TMs normal bilaterally. No lymphangitis/lymphedema. HEAD/NECK normocephalic atraumatic, no facial trauma, neck is supple. Bilateral erythematous enlarged tonsils. RESPIRATORY respiratory effort normal, speaks in full sentences, no tripod position, no accessory muscle use. Lungs clear to auscultation without rhonchi, wheezes, rales CARDIAC Regular rate and rhythm, no edema. ABDOMINAL Soft, ND/NT. No evidence of fluid wave. No pulsatile masses on exam, rebound tenderness, Rust sign or pain over Mcburney's point. MUSCLES/EXTREMITIES No abnormal range of motion, no swelling. SKIN Warm, pink and dry. No rashes, dermatoses, petechiae or lesions. NEUROLOGICAL Speech is clear and appropriate. Normal level of consciousness. Gait and coordination are normal. 5/5 strength in all extremities. PSYCH Normal mood and affect. Judgement/competence is appropriate Coding Level of Care Code Est Pt Level 3 (52497) Diagnoses Pharyngitis J02.9 Time Spent (min) 20 Assessment & Plan Assessment & Plan (1) Pharyngitis: Code(s): J02.9 - Acute pharyngitis, unspecified Category: Medical Plan: - A throat swab will be performed to test for strep throat. - If the rapid strep test is negative, the plan is to prescribe azithromycin 500 mg for three days. - If the rapid strep test is positive, the plan is to prescribe Augmentin for seven days. - Medicated lozenges will be prescribed to help with throat pain. Plan I discussed with the patient that we would perform a throat swab to check for strep throat. I explained the treatment plan is contingent on the results: azithromycin for a negative test and Augmentin for a positive test. I also informed her that I would prescribe benzonatate for her cough and medicated lozenges to soothe her throat, as the [id number] [place] she had been using were ineffective. We acknowledged her allergies to Tylenol and ibuprofen. Orders: Orders AMB Rapid Strep Screen Today Z13.9 - Encounter for screening, unspecified Medications: New benzocaine 15 mg mucous membrane Q3H PRN 18 ea 2RF sore throat benzonatate 100 mg PO BID PRN 20 caps 1RF cough
[2025-06-21 15:42] VITALS: BP 120/62; PULSE 82; TEMP 36.3; O2SAT 98; BMI 22.7
--- OUTSIDE RECORDS SUMMARY | 2025-06-21 17:33 | XMS_ITS | Clinical Summary ---
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 Driver'S License Driver Name Role Phone Bhavya Mariscal MD Primary Care Provider [phone] Social History Tobacco Use Types Packs/Day Years [...] Depression Screening 06/24/2024 COVID-19 Vaccine (1 - 2024-2 6 season) 2025 Influenza Vaccine (#1) 2025 RSV Immunization Adult Patie nts (1 - 1-dose 75+ series) 2045 HIB Vaccines Aged Out No longer eligi [...] age to complete this topic Care Teams Commercial Driver'S License Driver Relationship Specialty Start Date End Date Bhavya Mariscal MD [address] [place] [address] [address] [facility] [place] [address] PCP - General Internal Medicine 01/23/22
== END 2025-06-21 17:28 | disposition home or self-care (01) ==
LOC: HO.HMCH 15:31
PROVIDERS: PCP Internal Medicine; Visit Provider Internal Medicine
DX: Z13.9 Encounter for screening, unspecified (principal); J02.9 Acute pharyngitis, unspecified

== ENCOUNTER → 2025-06-21 15:30 | Outpatient (BNVA) | payer OTHER, SELFPAY | PROVIDERS: PCP Internal Medicine; Visit Provider Internal Medicine | DX: R05.8 Other specified cough (principal); J02.9 Acute pharyngitis, unspecified | CPT/HCPCS: 87880; 99212 ==